=== PATIENT | male | born 1930 | race Caucasian/White ===

== ENCOUNTER 2016-05-12 04:49 | Observation (INO) | payer BC, OTHER ==
[2016-05-12] VITALS (8 sets, daily range): BP systolic 129–181; BP diastolic 49–71; PULSE 69–84; TEMP 36.6–37.2; O2SAT 93–97; Ht 170.2 cm; Wt 98.2 kg
[~2016-05-12] VITALS: Ht 170.2 cm; Wt 98.2 kg
[~2016-05-12 04:49] MED LIST: ACT/45 PO; AMB10 PO; ARIP2TAB3 PO; ASPI81TA28 PO; ATEN50TA8 PO; CHOL20009 PO; DULO60CA44 PO; FINA1TAB36 PO; FLM4 PO; GUAI1TAB69 PO; IPRA0.037 NAE; LISI-729 PO; MULT-506 PO; OMEG10007 PO; POTA20TA16 PO; [UNRECOGNIZED DRUG - CODE] PO; [UNRECOGNIZED DRUG - OTHER] PO
[2016-05-12] MEDS ORDERED: SODIUM CHLORIDE 0.9% 500ML 500 ML IV STA (05:07)
--- NOTE | 2016-05-12 05:10 | EMERGENCY ROOM VISIT NOTE ---
History Report prepared by Kolby: Mary Ann Gavin Under the Supervision of: Dr. Ivan Brooks M.D. First contact with patient: 05:01 Chief Complaint: THROAT PAIN/INJURY Stated Complaint: THROAT PAIN/DIFFICULTY SWALLOWING History of Present Illness The patient is a 85 year old male who presents to the Emergency Room with complaints of a constant illness beginning yesterday. The patient states that he is not having difficulty swallowing and his throat does not hurt. Per the nursing staff the patient ate an apple on the way into the ED. He complains of lightheaded, cough, runny nose, runny eyes, trouble speaking which he notes is normal. He denies any vomiting, nausea, and shortness of breath. Source of History: patient Onset: yesterday Position: other (global) Timing: constant Associated Symptoms: + cough, No SOB, No nausea, No sorethroat, No vomiting Note: He complains of lightheaded, runny nose, runny eyes. Review of Systems See HPI for pertinent positives & negatives. A total of 10 systems reviewed and were otherwise negative. Past Medical & Surgical Medical Problems: (1) Diabetes mellitus (2) Diverticulosis Colon (W/O Ment Of Hemorrhage) (3) History of depression (4) Hypertension Nos Family History Hypertension Lung disease Social History Smoking Status: Former Smoker Alcohol Use: none Drug Use: none Marital Status: Housing Status: lives with significant other Occupation Status: retired Current/Historical Medications Scheduled Aripiprazole (Abilify), 2 MG PO DAILY Aspirin (Aspirin Ec), 81 MG PO HS Atenolol (Tenormin), 50 MG PO QPM Cholecalciferol (Vitamin D), 2,000 INTER.UNIT PO QAM Colestipol HCl (Micronized Colestipol HCl), 4 GM PO QD@1200 Duloxetine Hcl (Cymbalta), 60 MG PO QAM Finasteride (Alopecia) (Finasteride), 5 MG PO HS Fish Oil ([place]-3), 1,200 MG PO BID Guaifenesin (Mucinex Maximum Strength), 1 TAB PO DIRECTED Ipratropium [place] (Nasal) (Ipratropium [place]), 1-2 SPRAYS PURA DAILY Lisinopril (Zestril), 7.5 MG PO QPM Multivitamin (Multivitamin), 1 TAB PO QAM Pioglitazone (Actos), 30 MG PO DAILY Potassium Ext Rel (Klor-Con), 20 MEQ PO QAM Tamsulosin HCl (Tamsulosin HCl), 0.4 MG PO HS Scheduled PRN Zolpidem Tartrate (Zolpidem Tartrate), 5 MG PO HS PRN for Sleep Allergies Coded Allergies: Statins (Verified Adverse Reaction, Intermediate, MUSCLE PAIN, 05/12/16) Physical Exam Vital Signs Date Time Temp Pulse Resp B/P Pulse Ox O2 Delivery O2 Flow Rate FiO2 05/12/16 06:45 70 05/12/16 06:40 75 20 154/62 93 Room Air 05/12/16 04:50 37.1 88 20 154/62 96 Room Air 05/12/16 04:50 98 Room Air Physical Exam GENERAL: Patient is well appearing and in no acute distress. HEENT: No acute trauma, normocephalic atraumatic, mucous membranes moist, no scleral icterus. Bilateral nasal rhinorrhea, watery conjunctivitis bilateral eyes. NECK: No stridor, no adenopathy, no meningismus, trachea is midline. LUNGS: No dyspnea. Clear to auscultation and equal bilaterally. No wheeze, no rhonchi. Periodic mild cough. HEART: Regular rate and rhythm. No murmurs, rubs, gallops appreciated. ABDOMEN: Soft, nontender, bowel sounds positive, no masses appreciated, no peritonitis. BACK: No midline tenderness, no CVA tenderness EXTREMITIES: Normal motion all extremities, no cyanosis, no edema. NEUROLOGIC: Alert and oriented, no acute motor or sensory deficits, no focal weakness, cranial nerves grossly intact. SKIN: No rash, no jaundice, no diaphoresis. Medical Decision & Procedures ER Provider Diagnostic Interpretation: X ray results are stated below per my interpretation and the radiologist's interpretation. CHEST ONE VIEW PORTABLE FINDINGS: The bones soft tissues and hemidiaphragms are normal. The cardiomediastinal silhouette is normal. The lungs are clear. The pulmonary vasculature is normal. IMPRESSION: Negative chest. Electronically signed by: Gio Simmons M.D. 05/12/2016 6:47 AM Dictated Date/Time: 05/12/2016 6:47 AM Laboratory Results 05/12/16 05:25 Red Blood Count 3.74, Mean Corpuscular Volume 91.7, Mean Corpuscular Hemoglobin 30.5, Mean Corpuscular Hemoglobin Concent 33.2, Mean Platelet Volume 10.7, Neutrophils (%) (Auto) 65.5, Lymphocytes (%) (Auto) 18.2, Monocytes (%) (Auto) 14.4, Eosinophils (%) (Auto) 1.5, Basophils (%) (Auto) 0.2, Neutrophils # (Auto ) 3.97, Lymphocytes # (Auto) 1.10, Monocytes # (Auto) 0.87, Eosinophils # (Auto ) 0.09, Basophils # (Auto) 0.01 05/12/16 05:25 Test 05/12/16 05:25 05/12/16 05:45 White Blood Count 6.05 K/uL (4.8-10.8) Red Blood Count 3.74 M/uL (4.7-6.1) Hemoglobin 11.4 g/dL (14.0-18.0) Hematocrit 34.3 % (42-52) Mean Corpuscular Volume 91.7 fL (80-100) Mean Corpuscular Hemoglobin 30.5 pg (25-34) Mean Corpuscular Hemoglobin Concent 33.2 g/dl (32-36) Platelet Count 164 K/uL (130-400) Mean Platelet Volume 10.7 fL (7.4-10.4) Neutrophils (%) (Auto) 65.5 % Lymphocytes (%) (Auto) 18.2 % Monocytes (%) (Auto) 14.4 % Eosinophils (%) (Auto) 1.5 % Basophils (%) (Auto) 0.2 % Neutrophils # (Auto) 3.97 K/uL (1.4-6.5) Lymphocytes # (Auto) 1.10 K/uL (1.2-3.4) Monocytes # (Auto) 0.87 K/uL (0.11-0.59) Eosinophils # (Auto) 0.09 K/uL (0-0.5) Basophils # (Auto) 0.01 K/uL (0-0.2) RDW Standard Deviation 47.2 fL (36.4-46.3) RDW Coefficient of Variation 14.2 % (11.5-14.5) Immature Granulocyte % (Auto) 0.2 % Immature Granulocyte # (Auto) 0.01 K/uL (0.00-0.02) Anion Gap 10.0 mmol/L (3-11) Est Creatinine Clear Calc Drug Dose 61.1 ml/min Estimated GFR () 79.2 Estimated GFR (Non- 68.3 BUN/Creatinine Ratio 16.1 (10-20) Calcium Level 8.0 mg/dl (8.5-10.1) Magnesium Level 1.6 mg/dl (1.8-2.4) Total Creatine Kinase 212 U/L (39-308) Troponin I 0.026 ng/ml (0-0.045) Influenza Type A Antigen Neg for Influ A (NEG) Influenza Type B Antigen Neg for Influ B (NEG) Laboratory results as reviewed by me. Medications Administered Medications (Trade) Dose Ordered Sig/Brittaney Route Start Time Stop Time Status Last Admin Dose Admin Sodium Chloride (Nss 500ml) 500 ml @ 999 mls/hr Q31M STAT IV 05/12/16 05:07 05/12/16 05:37 DC 05/12/16 05:27 999 MLS/HR Magnesium Sulfate (Magnesium Sulfate) 2 gm NOW STAT IV 05/12/16 06:18 05/12/16 06:19 DC 05/12/16 06:39 2 GM ED Course 0501: The patient was evaluated in room B9. A complete history and physical exam was performed. 0507: Sodium Chloride 500 ml @ 999 mls/hr IV. 0515: I reevaluated the patient. He states that the guttural noise started 24 hours ago when he started feeling ill. 0618: Magnesium Sulfate 2gm IV. 0619: I reevaluated the patient. He states that he is too weak to go home. 0700: Discussed the patient's case with Dr. Tejada of [facility]. The patient will be evaluated for further treatment and disposition. 0705: Upon reevaluation, the patient is hemodynamically stable. Discussed results and treatment plan with the patient. He verbalized understanding and agreement with the treatment plan. The patient will be evaluated for further management. Medical Decision Differential: Sepsis, Infectious (UTI/Pneumonia/Meningitis/etc), Metabolic/ Electrolyte Abnormality, Cardiac, Hepatic, Endocrine, Toxicologic, Neurologic, amongst other pathologies entertained. 85 yr old male with 3 yrs of speach issues after some spontaneous event of uncertain etiology. Increased weakness and fatigue over last 24 hours associated with URI and episodes of moaning. He states he can't control moaning but he is in no distress from them. He adamantly denies throat issues for me and he ate an apple on the way in to ER. No fevers, cxr looks chronic. Mag is low thus this was started repletion here. Given weakness will bring in to medical team for further evaluation and treatment. Consults Time Called: 0650 Consulting Physician: Dr. Tejada Returned Call: 0700 Discussed the patient's case with Dr. Tejada of [facility]. The patient will be evaluated for further treatment and disposition. Impression Primary Impression: Hypomagnesemia Additional Impressions: Generalized weakness URI (upper respiratory infection) Difficulty with speech Scribe Attestation The scribe's documentation has been prepared under my direction and personally reviewed by me in its entirety. I confirm that the note above accurately reflects all work, treatment, procedures, and medical decision making performed by me. Departure Information Dispostion Being Evaluated By Hospitalist Referrals Nate Penny M.D. (PCP) Patient Instructions My [facility] Health Problem Qualifiers Additional Impressions: URI (upper respiratory infection) URI type: unspecified URI Qualified Codes: J06.9 - Acute upper respiratory infection, unspecified
[2016-05-12 06:05] LABS: BASO % 0.2 %; BASO ABS # 0.01 K/uL (0-0.2); COMPLETE YES; EOS % 1.5 %; HEMATOCRIT 34.3 % (42-52); IG% 0.2 %; LYMPH % 18.2 %; MEAN CELL VOLUME 91.7 fL (80-100); MEAN CORPUSCULAR HEMOGLOBIN 30.5 pg (25-34); MEAN CORPUSCULAR HGB CONC 33.2 g/dl (32-36); MEAN PLATELET VOLUME 10.7 fL (7.4-10.4); MONO % 14.4 %; NEUT % 65.5 %; PLATELET COUNT 164 K/uL (130-400); RED BLOOD COUNT 3.74 M/uL (4.7-6.1); WHITE BLOOD COUNT 6.05 K/uL (4.8-10.8)
[2016-05-12 06:07] LABS: BUN/CREATININE RATIO 16.1 (10-20); MAGNESIUM 1.6 mg/dl (1.8-2.4); POTASSIUM 3.7 mmol/L (3.5-5.1)
[2016-05-12] MEDS ORDERED: ACT30 PO (06:16)
[2016-05-12] MEDS ORDERED: IPRA0.06 NAE (06:18)
[2016-05-12] MEDS ORDERED: MAGNESIUM SULFATE 1GM / D5W 1 GM BAG IV STA (06:18)
--- NOTE | 2016-05-12 06:48 | DIAGNOSTIC IMAGING REPORT ---
CHEST ONE VIEW PORTABLE CLINICAL HISTORY: coughs dyspnea COMPARISON STUDY: 11/05/2015 FINDINGS: The bones soft tissues and hemidiaphragms are normal. The cardiomediastinal silhouette is normal. The lungs are clear. The pulmonary vasculature is normal. IMPRESSION: Negative chest. Electronically signed by: Gio Simmons M.D. 05/12/2016 6:47 AM Dictated Date/Time: 05/12/2016 6:47 AM
[2016-05-12] MEDS ORDERED: DC ALL PREVIOUSLY ORDERED DIABETES MEDS ONE (08:45)
[2016-05-12] MEDS ORDERED: GLUCOSE 40% GEL 15 GM TUBE PO PRN (08:45)
[2016-05-12] MEDS ORDERED: GLUCAGON FOR INJ 1 MG VIAL SQ PRN (08:45)
[2016-05-12] MEDS ORDERED: ONDANSETRON INJ 2 MG/ML 2 ML VIAL IV PRN (08:45)
[2016-05-12] MEDS ORDERED: POLYETHYLENE (MIRALAX) 17 GM PACK PO PRN (08:45)
[2016-05-12] MEDS ORDERED: GLUCOSE 10 TABS/TUBE PO PRN (08:45)
[2016-05-12] MEDS ORDERED: DEXTROSE 50% 50 ML SYR IV PRN (08:45)
[2016-05-12] MEDS ORDERED: ACETAMINOPHEN 325 MG TAB PO PRN (08:45)
[2016-05-12] MEDS ORDERED: FINA5TAB4 PO (08:51)
[2016-05-12] MEDS ORDERED: SOLI5TAB2 PO (08:53)
[2016-05-12] MEDS ORDERED: PHARMACY GLYCEMIC MGMT CONSULT PRN (09:32)
--- NOTE | 2016-05-12 09:34 | History and Physical ---
History & Physical Date & Time of Service: May 12, 2016 at 08:40 Chief Complaint: cough and lightheadedness Primary Care Physician: Casey Zhang D.OJordana History of Present Illness Source: patient, clinic records This is an 85 year old male with PMH of DM type 2, HTN, dyslipidemia, depression , BPH, who presents to the ED with cough and lightheadedness. Patient states symptoms started yesterday with dry cough, rhinorrhea, lightheadedness especially with cough and upon standing, generalized weakness, and fatigue. He reports chronic dysarthria with unknown etiology for which he follows with a neurologist. Denies fever, chills, myalgias, headache, vision change, swallowing difficulty, focal weakness or numbness, chest pain, SOB, abdominal pain, N/V/D, appetite loss, dysuria, frequency. Denies recent sick contact, hospitalization, or antibiotics. Denies history of lung or cardiac disease. Pt lives with and ambulates unassisted. 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 Surgical Problems: (1) H/O sinus surgery Status: Chronic (2) History of dental surgery Status: Chronic Family History FH: congestive heart failure BROTHER FH: lung cancer BROTHER Hypertension Lung disease Social History Smoking Status: Former Smoker (quit 30 year sago, prior 1.5 ppd x 35 years) Alcohol Use: occasionally (1 glass of wine on occasion) Drug Use: none Marital Status: Housing status: lives with family Occupational Status: retired Multi-Drug Resistant Organisms History of MDRO: No Allergies Coded Allergies: Statins (Verified Adverse Reaction, Intermediate, MUSCLE PAIN, 05/12/16) Home Medications Scheduled Aripiprazole (Abilify), 1 MG PO DAILY Aspirin (Aspirin Ec), 81 MG PO HS Cholecalciferol (Vitamin D), 2,000 INTER.UNIT PO QAM Colestipol HCl (Micronized Colestipol HCl), 4 GM PO QD@1200 Duloxetine Hcl (Cymbalta), 60 MG PO QAM Finasteride (Proscar), 1 TAB PO HS Fish Oil ([place]-3), 1,200 MG PO BID Ipratropium [place] (Nasal) (Ipratropium [place]), 1-2 SPRAYS PURA DAILY Lisinopril (Zestril), 5 MG PO QPM Multivitamin (Multivitamin), 1 TAB PO QAM Pioglitazone (Actos), 30 MG PO DAILY Potassium Ext Rel (Klor-Con), 20 MEQ PO QAM Solifenacin Succinate (Vesicare), 1 TAB PO DAILY Tamsulosin HCl (Tamsulosin HCl), 0.4 MG PO HS Scheduled PRN Zolpidem Tartrate (Zolpidem Tartrate), 5 MG PO HS PRN for Sleep Review of Systems Constitutional: + fatigue, + weakness (generalized), No chills, No fever, No weight loss Eyes: No worsening of vision ENT: + nasal symptoms (rhinorrhea), No sore throat, No trouble swallowing Respiratory: + cough, No shortness of breath, No sputum Cardiovascular: No chest pain, No edema Abdomen: No diarrhea, No nausea, No pain, No vomiting Musculoskeletal: No calf pain, No muscle pain Genitourinary - Male: No dysuria, No urinary frequency Neurologic: + problem reported (lightheadedness especially with standing and cough. no headache. ), No numbness/tingling, No weakness Psychiatric: No depression symptoms Endocrine: + problem reported (blood sugars controlled at home ) Integumentary: No rash Physical Exam Vital Signs Date Time Temp Pulse Resp B/P Pulse Ox O2 Delivery O2 Flow Rate FiO2 05/12/16 08:20 74 19 153/58 94 Room Air 05/12/16 07:39 37.1 84 16 129/49 95 Room Air 05/12/16 06:45 70 05/12/16 06:40 75 20 154/62 93 Room Air 05/12/16 04:50 37.1 88 20 154/62 96 Room Air 05/12/16 04:50 98 Room Air General Appearance: WD/WN, no apparent distress, + pertinent finding (pleasant alert elderly male, lying in bed, no distress) Head: normocephalic, atraumatic Eyes: normal inspection, PERRL, EOMI, sclerae normal ENT: normal ENT inspection, hearing grossly normal, TMs normal, pharynx normal Neck: supple, trachea midline Respiratory/Chest: no respiratory distress, no accessory muscle use, + pertinent finding (trace wheeze on the left base, coughing often during exam) Cardiovascular: regular rate, rhythm, no murmur Abdomen/GI: normal bowel sounds, non tender, soft Extremities/Musculoskelatal: normal inspection, no calf tenderness, no pedal edema 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 motor 4/5 in all extremities, sensation to light touch grossly intact all extremities. ) Skin: normal color, warm/dry, + pertinent finding (skin appears dry) Diagnostics Laboratory Results Results Past 24 Hours Test 05/12/16 05:25 05/12/16 05:45 Range/Units White Blood Count 6.05 4.8-10.8 K/uL Red Blood Count 3.74 4.7-6.1 M/uL Hemoglobin 11.4 14.0-18.0 g/dL Hematocrit 34.3 42-52 % Mean Corpuscular Volume 91.7 80-100 fL Mean Corpuscular Hemoglobin 30.5 25-34 pg Mean Corpuscular Hemoglobin Concent 33.2 32-36 g/dl Platelet Count 164 130-400 K/uL Mean Platelet Volume 10.7 7.4-10.4 fL Neutrophils (%) (Auto) 65.5 % Lymphocytes (%) (Auto) 18.2 % Monocytes (%) (Auto) 14.4 % Eosinophils (%) (Auto) 1.5 % Basophils (%) (Auto) 0.2 % Neutrophils # (Auto) 3.97 1.4-6.5 K/uL Lymphocytes # (Auto) 1.10 1.2-3.4 K/uL Monocytes # (Auto) 0.87 0.11-0.59 K/uL Eosinophils # (Auto) 0.09 0-0.5 K/uL Basophils # (Auto) 0.01 0-0.2 K/uL RDW Standard Deviation 47.2 36.4-46.3 fL RDW Coefficient of Variation 14.2 11.5-14.5 % Immature Granulocyte % (Auto) 0.2 % Immature Granulocyte # (Auto) 0.01 0.00-0.02 K/uL Sodium Level 139 136-145 mmol/L Potassium Level 3.7 3.5-5.1 mmol/L Chloride Level 103 98-107 mmol/L Carbon Dioxide Level 26 21-32 mmol/L Anion Gap 10.0 3-11 mmol/L Blood Urea Nitrogen 16 7-18 mg/dl Creatinine 1.00 0.60-1.40 mg/dl Est Creatinine Clear Calc Drug Dose 61.1 ml/min Estimated GFR () 79.2 Estimated GFR (Non- 68.3 BUN/Creatinine Ratio 16.1 10-20 Random Glucose 131 70-99 mg/dl Calcium Level 8.0 8.5-10.1 mg/dl Magnesium Level 1.6 1.8-2.4 mg/dl Total Creatine Kinase 212 39-308 U/L Troponin I 0.026 0-0.045 ng/ml Influenza Type A Antigen Neg for Influ A NEG Influenza Type B Antigen Neg for Influ B NEG Diagnostic Radiology CHEST ONE VIEW PORTABLE CLINICAL HISTORY: coughs dyspnea COMPARISON STUDY: 11/05/2015 FINDINGS: The bones soft tissues and hemidiaphragms are normal. The cardiomediastinal silhouette is normal. The lungs are clear. The pulmonary vasculature is normal. IMPRESSION: Negative chest. EKG NSR, 66 bpm, nonspecific T wave abnormality in III, nonspecific ST abnormality in V1 Impression Assessment and Plan GENERALIZED WEAKNESS Possibly due to viral upper vs. lower respiratory infection Afebrile, no leukocytosis, HD stable + orthostasis (HR increased >10 bpm with standing) EKG- NSR 66 bpm, nonspecific ST and T abnormalities CXR- no infiltrate Influenza antigen neg- check influenza PCR Check UA Supportive care with IVF's, nebs PRN PT and OT evaluations LIGHTHEADEDNESS Positive orthostasis (HR increased >10 bpm with standing) Likely hypovolemic due to viral URI Received 500 mL of NSS in ER Will give another 500 mL at 125 mL/hour Recheck orthostatic VS Q shift HYPOMAGNESEMIA May also be contributing to generalized weakness Received 2 gm IV mag in ER Monitor HYPERTENSION BP running 120s-150s Continue lisinopril DM TYPE 2 Hold Actos Last A1c 02/04/16 was 6.0 Insulin sliding scale coverage Recheck A1c DYSLIPIDEMIA Statin intolerance per records BPH Continue Flomax, Proscar, Vesicare DEPRESSION Continue Cymbalta and Abilify DVT PROPHYLAXIS Lovenox SQ CODE STATUS DNR per my discussion with the patient DISPOSITION Observation to telemetry Follows with Dr. Casey Zhang for primary care Patient seen in collaboration with Dr. Diggs. Please see her addendum. ATTENDING ADDENDUM Record reviewed. Patient interviewed and examined. Care coordinated with Rebekah Khanna PA-C. Please refer to her documentation for patient's history. I have seen and examined this patient and discussed the plan with Vida Khanna. I agree with the above assessment and plan. Gemma Diggs DO [facility] Advanced Directives Existing Advance Directive: Yes Existing Living Will: Yes Existing Power of Ad Terminal Makeup Operator: No
[2016-05-12] MEDS ORDERED: ALBUT/IPRATROP 3MG/0.5MG NEB 3 ML VIAL INH PRN (09:45)
[2016-05-12] MEDS ORDERED: PNEUMOCOCCAL POLYSACCHARIDES 25 MCG/0.5 ML VIAL/SYR IM. ONE (10:30)
[2016-05-12] MEDS ORDERED: PNEUMOCOCCAL ADMINISTRATION CHARGE ONE (10:30)
[2016-05-12] MEDS ORDERED: SODIUM CHLORIDE 0.9% 500ML 500 ML IV SCH (10:30)
[2016-05-12 11:28] LABS: HEMATOCRIT 34.5 % (42-52); MEAN CELL VOLUME 92.7 fL (80-100); MEAN CORPUSCULAR HEMOGLOBIN 30.6 pg (25-34); MEAN PLATELET VOLUME 10.7 fL (7.4-10.4); PLATELET COUNT 156 K/uL (130-400); RED BLOOD COUNT 3.72 M/uL (4.7-6.1); WHITE BLOOD COUNT 6.15 K/uL (4.8-10.8)
[2016-05-12 11:46] LABS: INR 1.1 (0.9-1.1); PROTHROMBIN TIME (PATIENT) 11.3 SECONDS (9.0-12.0)
[2016-05-12] MEDS: ARIPIprazole 1 MG/ML ORAL SOLN 150 ML BTL PO SCH (11:59)
[2016-05-12] MEDS: INSULIN ASPART 100 UNITS/ML 3 ML PEN SC SCH ×3 (11:59→21:00)
[2016-05-12] MEDS ORDERED: IV FLUIDS COMPLETED PRN (12:00)
[2016-05-12] MEDS: COLESTIPOL HCL 1 GM TAB PO SCH (12:00)
[2016-05-12] MEDS ORDERED: HydrALAZINE HCL 20 MG/ML VIAL IV. PRN (19:45)
[2016-05-12] MEDS ORDERED: LISINOPRIL 5 MG TAB PO ONE (19:45)
[2016-05-12] MEDS: FINASTERIDE 5 MG TAB PO SCH (20:54)
[2016-05-12] MEDS: OMEGA-3 (PURIFIED FISH OIL) 1 GM CAP PO SCH (20:54)
[2016-05-12] MEDS: LISINOPRIL 5 MG TAB PO SCH (20:55)
[2016-05-12] MEDS: ASPIRIN 81 MG ECTAB PO SCH (20:55)
[2016-05-12] MEDS: TAMSULOSIN HCL 0.4 MG CAP PO SCH (20:55)
[2016-05-12] MEDS: ENOXAPARIN 40 MG/0.4 ML SYR SC SCH (20:56)
[2016-05-12] MEDS ORDERED: ZOLPIDEM TARTRATE 10 MG TAB PO PRN (21:00)
[2016-05-12 21:08] LABS: URINE APPEARANCE CLEAR (CLEAR); URINE BILIRUBIN NEG (NEG); URINE COLOR YELLOW; URINE EPITHELIAL CELL AUTO 0-5 /lpf (0-5); URINE NITRITE NEG (NEG); URINE SPECIFIC GRAVITY 1.003 (1.000-1.030); UROBILINOGEN NEG (NEG)
[2016-05-12 21:09] LABS: MANUAL MICROSCOPIC REQUIRED? NO; REVIEW REQ? NO
[2016-05-12 21:36] LABS: INFLUENZA B PCR Neg for Influ B (NEG)
[2016-05-12 21:37] LABS: INFLUENZA A PCR POS for Influ A (NEG)
[2016-05-12] MEDS: INSULIN GLARGINE SOLOSTAR 100 UNITS/ML 3 ML PEN SC SCH (21:48)
[2016-05-13] VITALS (15 sets, daily range): BP systolic 119–189; BP diastolic 62–76; PULSE 72–83; TEMP 36.6–37.5; O2SAT 92–97
[2016-05-13 06:49] LABS: CREATININE 0.9 mg/dl (0.60-1.40); MAGNESIUM 1.8 mg/dl (1.8-2.4); POTASSIUM 3.4 mmol/L (3.5-5.1)
[2016-05-13 07:17] LABS: ESTIMATED AVERAGE GLUCOSE 131 mg/dl; HA1C FLAG Normal (Normal)
[2016-05-13] MEDS: OMEGA-3 (PURIFIED FISH OIL) 1 GM CAP PO SCH ×2 (07:41→20:52)
[2016-05-13] MEDS: CHOLECALCIFEROL 1000 INTER.UNIT TAB PO SCH (07:41)
[2016-05-13] MEDS: POTASSIUM CHLORIDE 20 MEQ TABCR PO SCH (07:42)
[2016-05-13] MEDS: DULOXETINE HCL 60 MG CAP PO SCH (07:42)
[2016-05-13] MEDS: MULTIVITAMIN TAB PO SCH (07:43)
[2016-05-13] MEDS: ARIPIprazole 1 MG/ML ORAL SOLN 150 ML BTL PO SCH (07:44)
[2016-05-13] MEDS: INSULIN ASPART 100 UNITS/ML 3 ML PEN SC SCH ×4 (08:00→21:30)
[2016-05-13] MEDS ORDERED: OSELTAMIVIR PHOSPHATE 75 MG CAP PO ONE (10:30)
[2016-05-13] MEDS: COLESTIPOL HCL 1 GM TAB PO SCH (12:23)
--- NOTE | 2016-05-13 17:22 | Progress Note ---
Medicine Progress Note Date & Time of Visit: May 13, 2016 at 17:09. Subjective Pt was seen and examined Pt sitting at the edge of the bed eating his breakfast Pt said that he feels much better today compared to yesterday he said that his breathing feels good he denies any chest pain, palpitation, dizziness Objective Last 8 Hrs Date Time Temp Pulse Resp B/P Pulse Ox O2 Delivery O2 Flow Rate FiO2 05/13/16 15:28 36.8 82 18 149/76 97 05/13/16 15:03 94 Room Air 05/13/16 12:00 93 Room Air 05/13/16 11:38 36.8 72 18 119/63 95 Physical Exam: General- No acute distress Head- atraumatic Eyes- PERRL, EOMI ENT- oropharynx clear Neck- supple, no JVD Lungs- clear to auscultation and percussion Heart- regular rhythm; no murmur Abdomen- normal bowel sounds, soft Extremities- no calf tenderness Neuro- alert, oriented x 3; PERRL, EOMI Skin- warm & dry Laboratory Results: Last 24 Hours Test 05/12/16 19:57 05/12/16 20:29 05/12/16 20:44 05/13/16 05:45 Influenza Type A (RT-PCR) POS for Influ A Influenza Type B (RT-PCR) Neg for Influ B Bedside Glucose 109 mg/dl Urine Color YELLOW Urine Appearance CLEAR Urine pH 5.0 Urine Specific [place] 1.003 Urine Protein NEG Urine Glucose (UA) NEG Urine Ketones NEG Urine Occult Blood TRACE Urine Nitrite NEG Urine Bilirubin NEG Urine Urobilinogen NEG Urine Leukocyte Esterase NEG Urine WBC (Auto) 0 /hpf Urine RBC (Auto) 0-4 /hpf Urine Hyaline Casts (Auto) 0 /lpf Urine Epithelial Cells (Auto) 0-5 /lpf Urine Bacteria (Auto) NEG Sodium Level 138 mmol/L Potassium Level 3.4 mmol/L Chloride Level 103 mmol/L Carbon Dioxide Level 26 mmol/L Anion Gap 9.0 mmol/L Blood Urea Nitrogen 14 mg/dl Creatinine 0.90 mg/dl Est Creatinine Clear Calc Drug Dose 67.6 ml/min Estimated GFR () 89.9 Estimated GFR (Non- 77.6 BUN/Creatinine Ratio 16.0 Random Glucose 96 mg/dl Estimated Average Glucose 131 mg/dl Hemoglobin A1c 6.2 % Calcium Level 8.0 mg/dl Magnesium Level 1.8 mg/dl Test 05/13/16 06:31 05/13/16 11:00 05/13/16 16:04 Bedside Glucose 92 mg/dl 88 mg/dl 107 mg/dl Date/Time Source Procedure Growth Status 05/12/16 20:44 Urine , Clean Catch Urine Culture - Preliminary NO GROWTH - LESS THAN 1,000 COLONIES/... Resulted Assessment & Plan GENERALIZED WEAKNESS Possible related to FLU Afebrile, no leukocytosis, HD stable CXR- no infiltrate UA and Ucx negative Continue PT and OT INFLUENZA A Staring on Tamiflu to complete 5 days course LIGHTHEADEDNESS Resolved Electrolytes Imbalance K replaced Mg stable Continue monitor HYPERTENSION Continue lisinopril Continue monitor BP DM TYPE 2 Hold Actos HBA1c 6.2 on 05/13/16 Insulin sliding scale coverage DYSLIPIDEMIA Statin intolerance per records BPH Continue Flomax, Proscar, Vesicare DEPRESSION Continue Cymbalta and Abilify DVT PROPHYLAXIS Lovenox SQ CODE STATUS DNR per my discussion with the patient DISPOSITION Observation to telemetry Follows with Dr. Casey Zhang for primary care Current Inpatient Medications: Current Inpatient Medications Medications (Trade) Dose Ordered Sig/Brittaney Route Start Time Stop Time Status Last Admin Dose Admin Enoxaparin Sodium (Lovenox Inj) 40 mg QPM SC 05/12/16 21:00 06/11/16 20:59 05/12/16 20:56 40 MG Acetaminophen (Tylenol Tab) 650 mg Q4H PRN PO 05/12/16 08:45 06/11/16 08:44 05/13/16 03:35 650 MG Ondansetron HCl (Zofran Inj) 4 mg Q6H PRN IV 05/12/16 08:45 06/11/16 08:44 Polyethylene (Miralax Powder Packet) 17 gm DAILY PRN PO 05/12/16 08:45 06/11/16 08:44 Insulin Glargine (Lantus Solostar Pen) 10 unit HS SC 05/12/16 21:00 06/11/16 20:59 05/12/16 21:48 10 UNIT Insulin Aspart (novoLOG ASPART) SLIDING SCALE If C... ACHS SC 05/12/16 11:00 06/11/16 10:59 05/13/16 08:00 3 UNITS Glucose (Glucose 40% Gel) 15-30 GRAMS 15 GRAMS... UD PRN PO 05/12/16 08:45 06/11/16 08:44 Glucose (Glucose Chew Tab) 4-8 Tablets 4 Tabl... UD PRN PO 05/12/16 08:45 06/11/16 08:44 Dextrose (Dextrose 50% 50ML Syringe) 25-50ML OF 50% DW IV FOR... UD PRN IV 05/12/16 08:45 06/11/16 08:44 Glucagon (Glucagon Inj) 1 mg UD PRN SQ 05/12/16 08:45 06/11/16 08:44 Aspirin (Ecotrin Tab) 81 mg HS PO 05/12/16 21:00 06/11/16 20:59 05/12/16 20:55 81 MG Colestipol HCl (Colestid Tab) 4 gm QD@1200 PO 05/12/16 12:00 06/11/16 11:59 05/13/16 12:23 4 GM Duloxetine HCl (Cymbalta Cap) 60 mg QAM PO 05/13/16 09:00 06/12/16 08:59 05/13/16 07:42 60 MG Finasteride (Proscar Tab) 5 mg HS PO 05/12/16 21:00 06/11/16 20:59 05/12/16 20:54 5 MG Fish Oil ([place]-3 (Purified Fish Oil) Cap) 1 gm BID PO 05/12/16 21:00 06/11/16 20:59 05/13/16 07:41 1 GM Lisinopril (Zestril Tab) 5 mg QPM PO 05/12/16 21:00 06/11/16 20:59 05/12/16 20:55 5 MG Multivitamins (Multivitamin Tab) 1 tab QAM PO 05/13/16 09:00 06/12/16 08:59 05/13/16 07:43 1 TAB Potassium Chloride (Klor-Con Tab) 20 meq QAM PO 05/13/16 09:00 06/12/16 08:59 05/13/16 07:42 20 MEQ Tamsulosin HCl (Flomax Cap) 0.4 mg HS PO 05/12/16 21:00 06/11/16 20:59 05/12/16 20:55 0.4 MG Zolpidem Tartrate (Ambien Tab) 5 mg HS PRN PO 05/12/16 21:00 06/11/16 20:59 Aripiprazole (Abilify Soln) 1 mg DAILY PO 05/12/16 11:15 06/11/16 11:14 05/13/16 07:44 1 MG Cholecalciferol (Vitamin D Tab) 2,000 inter.unit QAM PO 05/13/16 09:00 06/12/16 08:59 05/13/16 07:41 2,000 INTER.UNIT Miscellaneous Information (Order Awaiting Action) 1 ea QS N/A 05/12/16 16:00 06/11/16 15:59 Albuterol/ Ipratropium (Duoneb) 3 ml Q4R PRN INH 05/12/16 09:45 06/11/16 09:44 Miscellaneous (Iv Fluids Completed) 1 ea PRN PRN N/A 05/12/16 12:00 05/12/17 11:59 Hydralazine HCl (HydrALAZINE INJ) 10 mg Q6H PRN IV. 05/12/16 19:45 06/11/16 19:44 Oseltamivir Phosphate (Tamiflu Cap) 75 mg BID PO 05/13/16 21:00 05/18/16 20:59
[2016-05-13] MEDS: TAMSULOSIN HCL 0.4 MG CAP PO SCH (20:51)
[2016-05-13] MEDS: ASPIRIN 81 MG ECTAB PO SCH (20:53)
[2016-05-13] MEDS: FINASTERIDE 5 MG TAB PO SCH (20:54)
[2016-05-13] MEDS: LISINOPRIL 5 MG TAB PO SCH (20:54)
[2016-05-13] MEDS: OSELTAMIVIR PHOSPHATE 75 MG CAP PO SCH (20:55)
[2016-05-13] MEDS: ENOXAPARIN 40 MG/0.4 ML SYR SC SCH (20:57)
[2016-05-13] MEDS: INSULIN GLARGINE SOLOSTAR 100 UNITS/ML 3 ML PEN SC SCH (21:31)
[2016-05-14] VITALS (13 sets, daily range): BP systolic 146–170; BP diastolic 0–84; PULSE 73–81; TEMP 36.7–37.3; O2SAT 92–97
[2016-05-14 06:32] LABS: BUN/CREATININE RATIO 17.9 (10-20); CREATININE 0.81 mg/dl (0.60-1.40); MAGNESIUM 1.8 mg/dl (1.8-2.4); POTASSIUM 3.5 mmol/L (3.5-5.1)
[2016-05-14] MEDS: INSULIN ASPART 100 UNITS/ML 3 ML PEN SC SCH ×4 (07:59→21:00)
[2016-05-14] MEDS: POTASSIUM CHLORIDE 20 MEQ TABCR PO SCH (08:00)
[2016-05-14] MEDS: ARIPIprazole 1 MG/ML ORAL SOLN 150 ML BTL PO SCH (08:00)
[2016-05-14] MEDS: DULOXETINE HCL 60 MG CAP PO SCH (08:00)
[2016-05-14] MEDS: MULTIVITAMIN TAB PO SCH (08:01)
[2016-05-14] MEDS: OSELTAMIVIR PHOSPHATE 75 MG CAP PO SCH ×2 (08:01→21:36)
[2016-05-14] MEDS: OMEGA-3 (PURIFIED FISH OIL) 1 GM CAP PO SCH ×2 (08:01→21:36)
[2016-05-14] MEDS: CHOLECALCIFEROL 1000 INTER.UNIT TAB PO SCH (08:03)
[2016-05-14] MEDS ORDERED: GUAIFENESIN 200 MG TAB PO ONE (10:30)
[2016-05-14] MEDS: COLESTIPOL HCL 1 GM TAB PO SCH (11:47)
--- NOTE | 2016-05-14 13:12 | Progress Note ---
Medicine Progress Note Date & Time of Visit: May 14, 2016 at 13:05. Subjective Pt was seen and examined Pt lying in bed with no acute distress Pt said that he continue to cough he said that his breathing feels much better he denies any chest pain, palpitation, dizziness and sob Objective Last 8 Hrs Date Time Temp Pulse Resp B/P Pulse Ox O2 Delivery O2 Flow Rate FiO2 05/14/16 12:00 94 Room Air 05/14/16 11:45 37.1 81 16 170/77 94 Room Air 05/14/16 08:00 94 Room Air 05/14/16 07:56 37.3 76 20 165/0 96 Room Air Physical Exam: General- No acute distress Head- atraumatic Eyes- PERRL, EOMI ENT- oropharynx clear Neck- supple, no JVD Lungs- clear to auscultation and percussion Heart- regular rhythm; no murmur Abdomen- normal bowel sounds, soft Extremities- no calf tenderness Neuro- alert, oriented x 3; PERRL, EOMI Skin- warm & dry Laboratory Results: Last 24 Hours Test 05/13/16 16:04 05/13/16 20:10 05/14/16 05:30 05/14/16 06:27 Bedside Glucose 107 mg/dl 87 mg/dl 92 mg/dl Sodium Level 137 mmol/L Potassium Level 3.5 mmol/L Chloride Level 101 mmol/L Carbon Dioxide Level 27 mmol/L Anion Gap 9.0 mmol/L Blood Urea Nitrogen 14 mg/dl Creatinine 0.81 mg/dl Est Creatinine Clear Calc Drug Dose 74.5 ml/min Estimated GFR () 93.9 Estimated GFR (Non- 81.0 BUN/Creatinine Ratio 17.9 Random Glucose 84 mg/dl Calcium Level 8.0 mg/dl Magnesium Level 1.8 mg/dl Test 05/14/16 11:10 Bedside Glucose 100 mg/dl Assessment & Plan GENERALIZED WEAKNESS Possible related to influenza Afebrile, no leukocytosis, HD stable CXR- no infiltrate UA and Ucx negative He did good with physical therapy INFLUENZA A Staring on Tamiflu to complete 5 days course LIGHTHEADEDNESS Resolved Electrolytes Imbalance K replaced Mg stable Continue monitor HYPERTENSION Continue lisinopril Continue monitor BP DM TYPE 2 Hold Actos HBA1c 6.2 on 05/13/16 Insulin sliding scale coverage DYSLIPIDEMIA Statin intolerance per records BPH Continue Flomax, Proscar, Vesicare DEPRESSION Continue Cymbalta and Abilify DVT PROPHYLAXIS Lovenox SQ CODE STATUS DNR per my discussion with the patient DISPOSITION Follows with Dr. Casey Zhang for primary care Will transfer to medical floor Current Inpatient Medications: Current Inpatient Medications Medications (Trade) Dose Ordered Sig/Brittaney Route Start Time Stop Time Status Last Admin Dose Admin Enoxaparin Sodium (Lovenox Inj) 40 mg QPM SC 05/12/16 21:00 06/11/16 20:59 05/13/16 20:57 40 MG Acetaminophen (Tylenol Tab) 650 mg Q4H PRN PO 05/12/16 08:45 06/11/16 08:44 05/13/16 03:35 650 MG Ondansetron HCl (Zofran Inj) 4 mg Q6H PRN IV 05/12/16 08:45 06/11/16 08:44 Polyethylene (Miralax Powder Packet) 17 gm DAILY PRN PO 05/12/16 08:45 06/11/16 08:44 Insulin Glargine (Lantus Solostar Pen) 10 unit HS SC 05/12/16 21:00 06/11/16 20:59 05/13/16 21:31 10 UNIT Insulin Aspart (novoLOG ASPART) SLIDING SCALE If C... ACHS SC 05/12/16 11:00 06/11/16 10:59 05/14/16 11:46 2 UNITS Glucose (Glucose 40% Gel) 15-30 GRAMS 15 GRAMS... UD PRN PO 05/12/16 08:45 06/11/16 08:44 Glucose (Glucose Chew Tab) 4-8 Tablets 4 Tabl... UD PRN PO 05/12/16 08:45 06/11/16 08:44 Dextrose (Dextrose 50% 50ML Syringe) 25-50ML OF 50% DW IV FOR... UD PRN IV 05/12/16 08:45 06/11/16 08:44 Glucagon (Glucagon Inj) 1 mg UD PRN SQ 05/12/16 08:45 06/11/16 08:44 Aspirin (Ecotrin Tab) 81 mg HS PO 05/12/16 21:00 06/11/16 20:59 05/13/16 20:53 81 MG Colestipol HCl (Colestid Tab) 4 gm QD@1200 PO 05/12/16 12:00 06/11/16 11:59 05/14/16 11:47 4 GM Duloxetine HCl (Cymbalta Cap) 60 mg QAM PO 05/13/16 09:00 06/12/16 08:59 05/14/16 08:00 60 MG Finasteride (Proscar Tab) 5 mg HS PO 05/12/16 21:00 06/11/16 20:59 05/13/16 20:54 5 MG Fish Oil ([place]-3 (Purified Fish Oil) Cap) 1 gm BID PO 05/12/16 21:00 06/11/16 20:59 05/14/16 08:01 1 GM Lisinopril (Zestril Tab) 5 mg QPM PO 05/12/16 21:00 06/11/16 20:59 05/13/16 20:54 5 MG Multivitamins (Multivitamin Tab) 1 tab QAM PO 05/13/16 09:00 06/12/16 08:59 05/14/16 08:01 1 TAB Potassium Chloride (Klor-Con Tab) 20 meq QAM PO 05/13/16 09:00 06/12/16 08:59 05/14/16 08:00 20 MEQ Tamsulosin HCl (Flomax Cap) 0.4 mg HS PO 05/12/16 21:00 06/11/16 20:59 05/13/16 20:51 0.4 MG Zolpidem Tartrate (Ambien Tab) 5 mg HS PRN PO 05/12/16 21:00 06/11/16 20:59 Aripiprazole (Abilify Soln) 1 mg DAILY PO 05/12/16 11:15 06/11/16 11:14 05/14/16 08:00 1 MG Cholecalciferol (Vitamin D Tab) 2,000 inter.unit QAM PO 05/13/16 09:00 06/12/16 08:59 05/14/16 08:03 2,000 INTER.UNIT Miscellaneous Information (Order Awaiting Action) 1 ea QS N/A 05/12/16 16:00 06/11/16 15:59 Albuterol/ Ipratropium (Duoneb) 3 ml Q4R PRN INH 05/12/16 09:45 06/11/16 09:44 Miscellaneous (Iv Fluids Completed) 1 ea PRN PRN N/A 05/12/16 12:00 05/12/17 11:59 Hydralazine HCl (HydrALAZINE INJ) 10 mg Q6H PRN IV. 05/12/16 19:45 06/11/16 19:44 Oseltamivir Phosphate (Tamiflu Cap) 75 mg BID PO 05/13/16 21:00 05/18/16 20:59 05/14/16 08:01 75 MG Guaifenesin (Organidin Nr Tab) 200 mg Q8 PO 05/14/16 14:00 06/13/16 13:59
[2016-05-14] MEDS: GUAIFENESIN 200 MG TAB PO SCH ×2 (14:10→21:36)
[2016-05-14] MEDS: LISINOPRIL 5 MG TAB PO SCH (21:36)
[2016-05-14] MEDS: ASPIRIN 81 MG ECTAB PO SCH (21:36)
[2016-05-14] MEDS: TAMSULOSIN HCL 0.4 MG CAP PO SCH (21:37)
[2016-05-14] MEDS: ENOXAPARIN 40 MG/0.4 ML SYR SC SCH (21:37)
[2016-05-14] MEDS: FINASTERIDE 5 MG TAB PO SCH (21:37)
[2016-05-14] MEDS: INSULIN GLARGINE SOLOSTAR 100 UNITS/ML 3 ML PEN SC SCH (21:38)
[2016-05-15] MEDS: GUAIFENESIN 200 MG TAB PO SCH ×2 (06:30→14:04)
[2016-05-15 06:49] LABS: HEMATOCRIT 31.5 % (42-52); MEAN CELL VOLUME 90.5 fL (80-100); MEAN CORPUSCULAR HGB CONC 34.3 g/dl (32-36); MEAN PLATELET VOLUME 10.7 fL (7.4-10.4); PLATELET COUNT 171 K/uL (130-400); RED BLOOD COUNT 3.48 M/uL (4.7-6.1); WHITE BLOOD COUNT 7.71 K/uL (4.8-10.8)
[2016-05-15 07:17] LABS: BUN/CREATININE RATIO 16.4 (10-20); CALCIUM 8.2 mg/dl (8.5-10.1); CREATININE 0.87 mg/dl (0.60-1.40); MAGNESIUM 1.8 mg/dl (1.8-2.4); POTASSIUM 3.7 mmol/L (3.5-5.1)
[2016-05-15 08:00] VITALS: O2SAT 92
[2016-05-15] MEDS: OMEGA-3 (PURIFIED FISH OIL) 1 GM CAP PO SCH (08:18)
[2016-05-15] MEDS: DULOXETINE HCL 60 MG CAP PO SCH (08:18)
[2016-05-15] MEDS: POTASSIUM CHLORIDE 20 MEQ TABCR PO SCH (08:19)
[2016-05-15] MEDS: MULTIVITAMIN TAB PO SCH (08:19)
[2016-05-15] MEDS: OSELTAMIVIR PHOSPHATE 75 MG CAP PO SCH (08:19)
[2016-05-15] MEDS: ARIPIprazole 1 MG/ML ORAL SOLN 150 ML BTL PO SCH (08:19)
[2016-05-15] MEDS: INSULIN ASPART 100 UNITS/ML 3 ML PEN SC SCH ×2 (08:21→12:39)
[2016-05-15 08:29] VITALS: BP 155/71; PULSE 73; TEMP 36.6; O2SAT 92
[2016-05-15] MEDS ORDERED: CHOLECALCIFEROL 1000 INTER.UNIT TAB PO SCH (12:30)
[2016-05-15] MEDS: COLESTIPOL HCL 1 GM TAB PO SCH (12:40)
--- NOTE | 2016-05-15 12:57 | Progress Note ---
Medicine Progress Note Date & Time of Visit: May 15, 2016 at 12:47. Subjective Pt was seen and examined Pt sitting in chair comfortable with no distress Pt said that he feels fine he said that his is in the hospital with the flu Pt said that his cough improved denies any chest pain, palpitation, dizziness and sob Objective Last 8 Hrs Date Time Temp Pulse Resp B/P Pulse Ox O2 Delivery O2 Flow Rate FiO2 05/15/16 08:29 36.6 73 20 155/71 92 Room Air 05/15/16 08:00 92 Room Air Physical Exam: General- No acute distress Head- atraumatic Eyes- PERRL, EOMI ENT- oropharynx clear Neck- supple, no JVD Lungs- clear to auscultation and percussion Heart- regular rhythm; no murmur Abdomen- normal bowel sounds, soft Extremities- no calf tenderness Neuro- alert, oriented x 3; PERRL, EOMI Skin- warm & dry Laboratory Results: Last 24 Hours Test 05/14/16 16:15 05/14/16 20:36 05/15/16 06:10 05/15/16 07:39 Bedside Glucose 114 mg/dl 95 mg/dl 88 mg/dl White Blood Count 7.71 K/uL Red Blood Count 3.48 M/uL Hemoglobin 10.8 g/dL Hematocrit 31.5 % Mean Corpuscular Volume 90.5 fL Mean Corpuscular Hemoglobin 31.0 pg Mean Corpuscular Hemoglobin Concent 34.3 g/dl RDW Standard Deviation 46.2 fL RDW Coefficient of Variation 13.8 % Platelet Count 171 K/uL Mean Platelet Volume 10.7 fL Sodium Level 138 mmol/L Potassium Level 3.7 mmol/L Chloride Level 100 mmol/L Carbon Dioxide Level 28 mmol/L Anion Gap 10.0 mmol/L Blood Urea Nitrogen 14 mg/dl Creatinine 0.87 mg/dl Est Creatinine Clear Calc Drug Dose 69.3 ml/min Estimated GFR () 91.2 Estimated GFR (Non- 78.7 BUN/Creatinine Ratio 16.4 Random Glucose 86 mg/dl Calcium Level 8.2 mg/dl Magnesium Level 1.8 mg/dl Test 05/15/16 11:38 Bedside Glucose 127 mg/dl Assessment & Plan GENERALIZED WEAKNESS Possible related to influenza Afebrile, no leukocytosis, HD stable CXR- no infiltrate UA and Ucx negative He did good with physical therapy Continue PT/OT INFLUENZA A Need to complete 5 days course of Tamiflu On droplet precaution LIGHTHEADEDNESS Resolved Electrolytes Imbalance stable HYPERTENSION Continue lisinopril 5mg If BP stays elevating, consider to increase lisinopril to 10mg Continue monitor BP DM TYPE 2 resume Actos upon discharge HBA1c 6.2 on 05/13/16 Insulin sliding scale coverage DYSLIPIDEMIA Statin intolerance per records BPH Continue Flomax, Proscar, Vesicare DEPRESSION Continue Cymbalta and Abilify DVT PROPHYLAXIS Lovenox SQ CODE STATUS DNR per my discussion with the patient DISPOSITION Will discharge today with Home health Follows with her primary care physician Dr. Casey Zhang on May 22 @ 3:20 pm Current Inpatient Medications: Current Inpatient Medications Medications (Trade) Dose Ordered Sig/Brittaney Route Start Time Stop Time Status Last Admin Dose Admin Enoxaparin Sodium (Lovenox Inj) 40 mg QPM SC 05/12/16 21:00 06/11/16 20:59 05/14/16 21:37 40 MG Acetaminophen (Tylenol Tab) 650 mg Q4H PRN PO 05/12/16 08:45 06/11/16 08:44 05/13/16 03:35 650 MG Ondansetron HCl (Zofran Inj) 4 mg Q6H PRN IV 05/12/16 08:45 06/11/16 08:44 Polyethylene (Miralax Powder Packet) 17 gm DAILY PRN PO 05/12/16 08:45 06/11/16 08:44 Insulin Glargine (Lantus Solostar Pen) 10 unit HS SC 05/12/16 21:00 06/11/16 20:59 05/14/16 21:38 10 UNIT Insulin Aspart (novoLOG ASPART) SLIDING SCALE If C... ACHS SC 05/12/16 11:00 06/11/16 10:59 05/14/16 17:17 2 UNITS Glucose (Glucose 40% Gel) 15-30 GRAMS 15 GRAMS... UD PRN PO 05/12/16 08:45 06/11/16 08:44 Glucose (Glucose Chew Tab) 4-8 Tablets 4 Tabl... UD PRN PO 05/12/16 08:45 06/11/16 08:44 Dextrose (Dextrose 50% 50ML Syringe) 25-50ML OF 50% DW IV FOR... UD PRN IV 05/12/16 08:45 06/11/16 08:44 Glucagon (Glucagon Inj) 1 mg UD PRN SQ 05/12/16 08:45 06/11/16 08:44 Aspirin (Ecotrin Tab) 81 mg HS PO 05/12/16 21:00 06/11/16 20:59 05/14/16 21:36 81 MG Colestipol HCl (Colestid Tab) 4 gm QD@1200 PO 05/12/16 12:00 06/11/16 11:59 05/15/16 12:40 4 GM Duloxetine HCl (Cymbalta Cap) 60 mg QAM PO 05/13/16 09:00 06/12/16 08:59 05/15/16 08:18 60 MG Finasteride (Proscar Tab) 5 mg HS PO 05/12/16 21:00 06/11/16 20:59 05/14/16 21:37 5 MG Fish Oil ([place]-3 (Purified Fish Oil) Cap) 1 gm BID PO 05/12/16 21:00 06/11/16 20:59 05/15/16 08:18 1 GM Lisinopril (Zestril Tab) 5 mg QPM PO 05/12/16 21:00 06/11/16 20:59 05/14/16 21:36 5 MG Multivitamins (Multivitamin Tab) 1 tab QAM PO 05/13/16 09:00 06/12/16 08:59 05/15/16 08:19 1 TAB Potassium Chloride (Klor-Con Tab) 20 meq QAM PO 05/13/16 09:00 06/12/16 08:59 05/15/16 08:19 20 MEQ Tamsulosin HCl (Flomax Cap) 0.4 mg HS PO 05/12/16 21:00 06/11/16 20:59 05/14/16 21:37 0.4 MG Zolpidem Tartrate (Ambien Tab) 5 mg HS PRN PO 05/12/16 21:00 06/11/16 20:59 Aripiprazole (Abilify Soln) 1 mg DAILY PO 05/12/16 11:15 06/11/16 11:14 05/15/16 08:19 1 MG Miscellaneous Information (Order Awaiting Action) 1 ea QS N/A 05/12/16 16:00 06/11/16 15:59 Albuterol/ Ipratropium (Duoneb) 3 ml Q4R PRN INH 05/12/16 09:45 06/11/16 09:44 Miscellaneous (Iv Fluids Completed) 1 ea PRN PRN N/A 05/12/16 12:00 05/12/17 11:59 Hydralazine HCl (HydrALAZINE INJ) 10 mg Q6H PRN IV. 05/12/16 19:45 06/11/16 19:44 Oseltamivir Phosphate (Tamiflu Cap) 75 mg BID PO 05/13/16 21:00 05/18/16 20:59 05/15/16 08:19 75 MG Guaifenesin (Organidin Nr Tab) 200 mg Q8 PO 05/14/16 14:00 06/13/16 13:59 05/15/16 06:30 200 MG Cholecalciferol (Vitamin D Tab) 2,000 inter.unit QAM PO 05/15/16 12:30 06/12/16 08:59 05/15/16 12:40 2,000 INTER.UNIT
--- NOTE | 2016-05-15 13:04 | Discharge Instructions ---
Discharge Instructions Admission Reason for Admission: Generalized Weakness, Upper Respiratory Infection Discharge Discharge Diagnosis / Problem: Influenza A, Electrolytes imbalance, HTN, DM Type, Dyslipidemia Discharge Goals Goal(s): Decrease discomfort, Improve function, Improve disease control Activity Recommendations Activity Limitations: resume your previous activity (as tolerated) . Instructions / Follow-Up Instructions / Follow-Up Discharge today with Home health Continue PT/OT Follows with her primary care physician Dr. Casey Zhang on May 22 @ 3:20 pm Complete the course of Tamiflu Current Hospital Diet Patient's current hospital diet: Diabetes Type 2 Diet, AHA Diet (Heart Healthy) Discharge Diet Recommended Diet: AHA Diet (Heart Healthy), Diabetes Type 2 Diet Pending Studies Studies pending at discharge: no Laboratory Results Hemoglobin A1c Test 05/13/16 05:45 Range/Units Estimated Average Glucose 131 mg/dl Hemoglobin A1c 6.2 H 4.5-5.6 % Medical Emergencies . Who to Call and When: Medical Emergencies: If at any time you feel your situation is an emergency, please call 911 immediately. . Non-Emergent Contact Non-Emergency issues call your: Primary Care Provider Call Non-Emergent contact if: you have any medication questions . . "Provider Documentation" section prepared by Anjali Stover. VTE Core Measure Inpt VTE Proph given/why not?: Enoxaparin (Lovenox)SQ
[2016-05-15] MEDS ORDERED: GUAI1TAB68 PO (13:11)
[2016-05-15] MEDS ORDERED: TMF75 PO (13:25)
[2016-05-15 14:09] VITALS: BP 155/71; PULSE 73; TEMP 36.6; O2SAT 92
--- NOTE | 2016-05-19 00:25 | Discharge Summary ---
Discharge Summary Admission Date: May 12, 2016 at 08:48 Discharge Date: May 15, 2016 Discharge Disposition: Home with services Principal Diagnosis: Upper Respiratory Infection Secondary Diagnoses/Problems: Influenza A Electrolytes imbalance HTN DM Type Dyslipidemia Medication Reconciliation New Medications: Guaifenesin (Organ-I Nr) 200 Mg Tab 200 MG PO Q8 PRN for Cough for 7 Days, #21 TAB Oseltamivir Phosphate (Tamiflu) 75 Mg Cap 75 MG PO BID for 2 Days, #4 CAP Continued Medications: Aripiprazole (Abilify) 2 Mg Tab 1 MG PO DAILY Aspirin (Aspirin Ec) 81 Mg Tab 81 MG PO HS Cholecalciferol (Vitamin D) 2,000 Unit Tab 2000 INTER.UNIT PO QAM Colestipol HCl (Micronized Colestipol HCl) 1 Gm Tab 4 GM PO QD@1200 Duloxetine Hcl (Cymbalta) 60 Mg Cap 60 MG PO QAM Finasteride (Proscar) 5 Mg Tab 1 TAB PO HS, 0 Refills Fish Oil ([place]-3) 1 Ea Cap 1200 MG PO BID Ipratropium [place] (Nasal) (Ipratropium [place]) 0.06 % Spr 1-2 SPRAYS PURA DAILY Lisinopril (Zestril) 5 Mg Tab 5 MG PO QPM, TAB Multivitamin (Multivitamin) Tab 1 TAB PO QAM, TAB Pioglitazone (Actos) 30 Mg Tab 30 MG PO DAILY, 3 Refills Potassium Ext Rel (Klor-Con) 20 Meq Tabcr 20 MEQ PO QAM, TAB Solifenacin Succinate (Vesicare) 5 Mg Tab 1 TAB PO DAILY, 11 Refills Tamsulosin HCl (Tamsulosin HCl) 0.4 Mg Cap 0.4 MG PO HS Zolpidem Tartrate (Zolpidem Tartrate) 10 Mg Tab 5 MG PO HS PRN for Sleep Admission Information HPI (per Admitting provider): This is an 85 year old male with PMH of DM type 2, HTN, dyslipidemia, depression , BPH, who presents to the ED with cough and lightheadedness. Patient states symptoms started yesterday with dry cough, rhinorrhea, lightheadedness especially with cough and upon standing, generalized weakness, and fatigue. He reports chronic dysarthria with unknown etiology for which he follows with a neurologist. Denies fever, chills, myalgias, headache, vision change, swallowing difficulty, focal weakness or numbness, chest pain, SOB, abdominal pain, N/V/D, appetite loss, dysuria, frequency. Denies recent sick contact, hospitalization, or antibiotics. Denies history of lung or cardiac disease. Pt lives with and ambulates unassisted. Physical Exam (per Admitting): General Appearance: WD/WN, no apparent distress, + pertinent finding ( pleasant alert elderly male, lying in bed, no distress) Head: normocephalic, atraumatic Eyes: normal inspection, PERRL, EOMI, sclerae normal ENT: normal ENT inspection, hearing grossly normal, TMs normal, pharynx normal Neck: supple, trachea midline Respiratory/Chest: no respiratory distress, no accessory muscle use, + pertinent finding (trace wheeze on the left base, coughing often during exam) Cardiovascular: regular rate, rhythm, no murmur Abdomen/GI: normal bowel sounds, non tender, soft Extremities/Musculoskelatal: normal inspection, no calf tenderness, no pedal edema Neurologic/Psych: 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 motor 4/5 in all extremities, sensation to light touch grossly intact all extremities. ) Skin: normal color, warm/dry, + pertinent finding (skin appears dry) Hospital Course GENERALIZED WEAKNESS Possible related to influenza Afebrile, no leukocytosis, HD stable CXR- no infiltrate UA and Ucx negative He did good with physical therapy Continue PT/OT INFLUENZA A Need to complete 5 days course of Tamiflu On droplet precaution LIGHTHEADEDNESS Resolved Electrolytes Imbalance stable HYPERTENSION Continue lisinopril 5mg If BP stays elevating, consider to increase lisinopril to 10mg Continue monitor BP DM TYPE 2 resume Actos upon discharge HBA1c 6.2 on 05/13/16 Insulin sliding scale coverage DYSLIPIDEMIA Statin intolerance per records BPH Continue Flomax, Proscar, Vesicare DEPRESSION Continue Cymbalta and Abilify DVT PROPHYLAXIS Lovenox SQ CODE STATUS DNR per my discussion with the patient DISPOSITION Will discharge today with Home health Follows with her primary care physician Dr. Casey Zhang on May 22 @ 3:20 pm Total time spent on discharge = 45 minutes This includes examination of the patient, discharge planning, medication reconciliation, and communication with other providers. Discharge Instructions Discharge Instructions Admission Reason for Admission: Generalized Weakness, Upper Respiratory Infection Discharge Discharge Diagnosis / Problem: Influenza A, Electrolytes imbalance, HTN, DM Type, Dyslipidemia Discharge Goals Goal(s): Decrease discomfort, Improve function, Improve disease control Activity Recommendations Activity Limitations: resume your previous activity (as tolerated) . Instructions / Follow-Up Instructions / Follow-Up Discharge today with Home health Continue PT/OT Follows with her primary care physician Dr. Casey Zhang on May 22 @ 3:20 pm Complete the course of Tamiflu Current Hospital Diet Patient's current hospital diet: Diabetes Type 2 Diet, AHA Diet (Heart Healthy) Discharge Diet Recommended Diet: AHA Diet (Heart Healthy), Diabetes Type 2 Diet Pending Studies Studies pending at discharge: no Laboratory Results Hemoglobin A1c Test 05/13/16 05:45 Range/Units Estimated Average Glucose 131 mg/dl Hemoglobin A1c 6.2 H 4.5-5.6 % Medical Emergencies . Who to Call and When: Medical Emergencies: If at any time you feel your situation is an emergency, please call 911 immediately. . Non-Emergent Contact Non-Emergency issues call your: Primary Care Provider Call Non-Emergent contact if: you have any medication questions . . "Provider Documentation" section prepared by Anjali Stover. VTE Core Measure Inpt VTE Proph given/why not?: Enoxaparin (Lovenox)SQ Additional Copies To Casey Zhang D.O.
== END 2016-05-15 15:00 | disposition home health service (06) ==
LOC: ENRESERVDT → ENRESERVTM → EDBD 04:49 → C.EDB 04:50 → C.2T 08:48 → EDBEDREQ 08:59 → C.2T 21:40 → C.MS2W 05-14 22:54
PROVIDERS: ADMIT Hospitalist; ATTEND Internal Medicine
DX: J06.9 Acute upper respiratory infection, unspecified (principal); E87.8 Other disorders of electrolyte and fluid balance, not elsewhere classified; E11.9 Type 2 diabetes mellitus without complications; R42 Dizziness and giddiness; J11.1 Influenza due to unidentified influenza virus with other respiratory manifestations; E78.5 Hyperlipidemia, unspecified; E83.42 Hypomagnesemia; F32.9 Major depressive disorder, single episode, unspecified; I10 Essential (primary) hypertension; N40.0 Benign prostatic hyperplasia without lower urinary tract symptoms; Z66 Do not resuscitate; Z87.891 Personal history of nicotine dependence; F41.9 Anxiety disorder, unspecified; F80.0 Phonological disorder; Z82.49 Family history of ischemic heart disease and other diseases of the circulatory system; Z80.1 Family history of malignant neoplasm of trachea, bronchus and lung; Z98.890 Other specified postprocedural states

== ENCOUNTER 2016-08-15 18:05 | Emergency (ER) | payer BC, OTHER ==
[~2016-08-15] VITALS: Ht 170.2 cm; Wt 89.0 kg
[~2016-08-15 18:05] MED LIST changes: -ACT/45 PO; +ACT30 PO; -ATEN50TA8 PO; -FINA1TAB36 PO; +FINA5TAB4 PO; +GUAI1TAB68 PO; -GUAI1TAB69 PO; -IPRA0.037 NAE; +IPRA0.06 NAE; +SOLI5TAB2 PO; +TMF75 PO; -[UNRECOGNIZED DRUG - OTHER] PO
[2016-08-15 18:13] VITALS: TEMP 36.9; O2SAT 100; Ht 170.2 cm; Wt 89.0 kg
[2016-08-15] MEDS ORDERED: LISINOPRIL 20 MG TAB PO STA (18:31)
--- NOTE | 2016-08-15 18:45 | DIAGNOSTIC IMAGING REPORT ---
CHEST ONE VIEW PORTABLE CLINICAL HISTORY: Altered mental status. Weakness. COMPARISON STUDY: 05/12/2016 FINDINGS: The heart is at the upper limits of normal in size. There is no failure. There is no focal pulmonary consolidation. There are no pleural effusions.[ IMPRESSION: No active disease in the chest. Electronically signed by: Jude Gotti M.D. 08/15/2016 6:44 PM Dictated Date/Time: 08/15/2016 6:44 PM
[2016-08-15 19:11] LABS: BASO % 0.2 %; BASO ABS # 0.02 K/uL (0-0.2); COMPLETE YES; EOS % 1.4 %; HEMATOCRIT 39.9 % (42-52); IG% 0.2 %; LYMPH % 34.3 %; LYMPH ABS # 2.98 K/uL (1.2-3.4); MEAN CELL VOLUME 92.8 fL (80-100); MEAN CORPUSCULAR HEMOGLOBIN 30.7 pg (25-34); MEAN CORPUSCULAR HGB CONC 33.1 g/dl (32-36); MEAN PLATELET VOLUME 10.1 fL (7.4-10.4); MONO % 7.7 %; NEUT % 56.2 %; PLATELET COUNT 217 K/uL (130-400); WHITE BLOOD COUNT 8.69 K/uL (4.8-10.8)
[2016-08-15 19:22] LABS: URINE APPEARANCE CLEAR (CLEAR); URINE BILIRUBIN NEG (NEG); URINE COLOR YELLOW; URINE NITRITE NEG (NEG); URINE SPECIFIC GRAVITY 1.018 (1.000-1.030); UROBILINOGEN NEG (NEG); ZZUR CULT IF INDIC CLEAN CATCH NO
[2016-08-15 19:23] LABS: MANUAL MICROSCOPIC REQUIRED? NO; REVIEW REQ? NO
[2016-08-15 19:39] LABS: BUN/CREATININE RATIO 25.2 (10-20); CALCIUM 9.1 mg/dl (8.5-10.1); CREATININE 0.91 mg/dl (0.60-1.40); POTASSIUM 3.8 mmol/L (3.5-5.1)
[2016-08-15 19:49] LABS: THYROID STIMULATING HORMONE 2.55 uIu/ml (0.300-4.500)
[2016-08-15 20:02] VITALS: BP 165/66; PULSE 83; O2SAT 100
--- NOTE | 2016-08-15 20:59 | EMERGENCY ROOM VISIT NOTE ---
History Report prepared by Kolby: Micki Rodriguez Under the Supervision of: Dr. Chintan Alarcon M.D. First contact with patient: 18:26 Chief Complaint: HYPERTENSION Stated Complaint: HYPERTENSION History of Present Illness The patient is a 85 year old male who presents to the Emergency Room with complaints of persistent high blood pressure starting 3 weeks ago. He presents to the ED by EMS from [facility]. 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 He has a history of high blood pressure and is on lisinopril. His dose was increased from 5 mg to 20 mg 1 week ago. His blood pressure continues to be high. He reports feeling woozy. He denies any headache, chest pain, SOB, arm pain, or leg pain. He has not taken his lisinopril today as he takes it before going to bed. Source of History: patient Onset: 3 weeks ago Position: other (global) Quality: other (high blood pressure) Timing: other (persistent) Associated Symptoms: No SOB, No chest pain, No headache Note: Pt reports feeling woozy. Pt denies arm pain, leg pain. Review of Systems See HPI for pertinent positives & negatives. A total of 10 systems reviewed and were otherwise negative. Past Medical & Surgical Medical Problems: (1) Anxiety (2) BPH (benign prostatic hypertrophy) (3) Diverticulosis Colon (W/O Ment Of Hemorrhage) (4) DM type 2 (diabetes mellitus, type 2) (5) Dyslipidemia (6) History of depression (7) Hypertension Nos (8) Lumbago (9) Speech articulation disorder Surgical Problems: (1) H/O sinus surgery (2) History of dental surgery Family History FH: congestive heart failure BROTHER FH: lung cancer BROTHER Hypertension Lung disease Social History Smoking Status: Former Smoker Alcohol Use: none Drug Use: none Marital Status: Housing Status: lives with significant other Occupation Status: retired Current/Historical Medications Scheduled Aripiprazole (Abilify), 1.5 MG PO DAILY Aspirin (Aspirin Ec), 81 MG PO HS Cholecalciferol (Vitamin D), 2,000 INTER.UNIT PO QAM Colestipol HCl (Micronized Colestipol HCl), 4 GM PO QD@1200 Duloxetine Hcl (Cymbalta), 120 MG PO QAM Finasteride (Proscar), 1 TAB PO HS Fish Oil (Thom[place]-3), 1,200 MG PO BID Ipratropium [place] (Nasal) (Ipratropium [place]), 1-2 SPRAYS PURA DAILY Lisinopril (Zestril), 20 MG PO QPM Multivitamin (Multivitamin), 1 TAB PO QAM Pioglitazone (Actos), 30 MG PO DAILY Potassium Ext Rel (Klor-Con), 20 MEQ PO QAM Solifenacin Succinate (Vesicare), 1 TAB PO DAILY Scheduled PRN Guaifenesin (Organ-I Nr), 200 MG PO Q8 PRN for Cough Zolpidem Tartrate (Zolpidem Tartrate), 5 MG PO HS PRN for Sleep Allergies Coded Allergies: Statins (Verified Adverse Reaction, Intermediate, MUSCLE PAIN, 08/15/16) Physical Exam Vital Signs Date Time Temp Pulse Resp B/P Pulse Ox O2 Delivery O2 Flow Rate FiO2 08/15/16 20:02 83 20 165/66 100 Room Air 08/15/16 19:07 77 24 173/75 95 08/15/16 18:46 74 08/15/16 18:13 100 Room Air 08/15/16 18:13 36.9 87 18 199/83 99 Room Air Physical Exam GENERAL: Patient is in no acute distress. HEENT: No acute trauma, normocephalic atraumatic, mucous membranes moist, no nasal congestion, no scleral icterus. NECK: No stridor, no adenopathy, no meningismus, trachea is midline. LUNGS: Clear to auscultation bilaterally, no wheeze, no rhonchi, breath sounds equal. HEART: Without murmurs gallops or rubs, regular rate and rhythm. ABDOMEN: Soft, nontender, bowel sounds positive, no hernias, no peritonitis. EXTREMITIES: No cyanosis or edema, full range of motion of all the joints without pain or difficulty, no signs for acute trauma. NEUROLOGIC: Oriented x 3, no acute motor or sensory deficits, no focal weakness , speech deficit consistent with past history, no cerebellar deficits. SKIN: No rash, no jaundice, no diaphoresis. Medical Decision & Procedures ER Provider Diagnostic Interpretation: X-ray results as stated below per interpretation by me and the radiologist: CHEST ONE VIEW PORTABLE CLINICAL HISTORY: Altered mental status. Weakness. COMPARISON STUDY: 05/12/2016 FINDINGS: The heart is at the upper limits of normal in size. There is no failure. There is no focal pulmonary consolidation. There are no pleural effusions.[ IMPRESSION: No active disease in the chest. Electronically signed by: Jude Gotti M.D. 08/15/2016 6:44 PM Dictated Date/Time: 08/15/2016 6:44 PM Laboratory Results 08/15/16 19:00 Red Blood Count 4.30, Mean Corpuscular Volume 92.8, Mean Corpuscular Hemoglobin 30.7, Mean Corpuscular Hemoglobin Concent 33.1, Mean Platelet Volume 10.1, Neutrophils (%) (Auto) 56.2, Lymphocytes (%) (Auto) 34.3, Monocytes (%) (Auto) 7.7, Eosinophils (%) (Auto) 1.4, Basophils (%) (Auto) 0.2, Neutrophils # (Auto) 4.88, Lymphocytes # (Auto) 2.98, Monocytes # (Auto) 0.67, Eosinophils # (Auto) 0.12, Basophils # (Auto) 0.02 08/15/16 19:00 Test 08/15/16 19:00 08/15/16 19:10 White Blood Count 8.69 K/uL (4.8-10.8) Red Blood Count 4.30 M/uL (4.7-6.1) Hemoglobin 13.2 g/dL (14.0-18.0) Hematocrit 39.9 % (42-52) Mean Corpuscular Volume 92.8 fL (80-100) Mean Corpuscular Hemoglobin 30.7 pg (25-34) Mean Corpuscular Hemoglobin Concent 33.1 g/dl (32-36) Platelet Count 217 K/uL (130-400) Mean Platelet Volume 10.1 fL (7.4-10.4) Neutrophils (%) (Auto) 56.2 % Lymphocytes (%) (Auto) 34.3 % Monocytes (%) (Auto) 7.7 % Eosinophils (%) (Auto) 1.4 % Basophils (%) (Auto) 0.2 % Neutrophils # (Auto) 4.88 K/uL (1.4-6.5) Lymphocytes # (Auto) 2.98 K/uL (1.2-3.4) Monocytes # (Auto) 0.67 K/uL (0.11-0.59) Eosinophils # (Auto) 0.12 K/uL (0-0.5) Basophils # (Auto) 0.02 K/uL (0-0.2) RDW Standard Deviation 46.3 fL (36.4-46.3) RDW Coefficient of Variation 13.7 % (11.5-14.5) Immature Granulocyte % (Auto) 0.2 % Immature Granulocyte # (Auto) 0.02 K/uL (0.00-0.02) Anion Gap 5.0 mmol/L (3-11) Est Creatinine Clear Calc Drug Dose 63.2 ml/min Estimated GFR () 88.8 Estimated GFR (Non- 76.6 BUN/Creatinine Ratio 25.2 (10-20) Calcium Level 9.1 mg/dl (8.5-10.1) Total Bilirubin 0.7 mg/dl (0.2-1) Aspartate Amino Transf (AST/SGOT) 24 U/L (15-37) Alanine Aminotransferase (ALT/SGPT) 27 U/L (12-78) Alkaline Phosphatase 84 U/L (45-117) Troponin I 0.018 ng/ml (0-0.045) Total Protein 6.7 gm/dl (6.4-8.2) Albumin 3.3 gm/dl (3.4-5.0) Globulin 3.4 gm/dl (2.5-4.0) Albumin/Globulin Ratio 1.0 (0.9-2) Thyroid Stimulating Hormone (TSH) 2.550 uIu/ml (0.300-4.500) Urine Color YELLOW Urine Appearance CLEAR (CLEAR) Urine pH 5.0 (4.5-7.5) Urine Specific Parker 1.018 (1.000-1.030) Urine Protein NEG (NEG) Urine Glucose (UA) NEG (NEG) Urine Ketones NEG (NEG) Urine Occult Blood NEG (NEG) Urine Nitrite NEG (NEG) Urine Bilirubin NEG (NEG) Urine Urobilinogen NEG (NEG) Urine Leukocyte Esterase NEG (NEG) Laboratory results reviewed by me. Medications Administered Medications (Trade) Dose Ordered Sig/Brittaney Route Start Time Stop Time Status Last Admin Dose Admin Lisinopril (Zestril Tab) 40 mg NOW STAT PO 08/15/16 18:31 08/15/16 18:36 DC 08/15/16 19:05 40 MG ECG Indication: other (hypertension) Rate (beats per minute): 77 Rhythm: sinus rhythm Findings: PAC, no acute ischemic change ED Course 1827: The patient was evaluated in room A3. A complete history and physical exam was performed. 1830: Lisinopril 40 mg PO. 2010: I reevaluated the patient. He is resting comfortably. I discussed results and discharge instructions: he verbalized understanding and agreement. The patient is ready for discharge. Medical Decision Differential diagnosis: essential hypertension, renal failure, infection, cardiac ischemia, dysrhythmia, anemia. There is no leukocytosis or concerning anemia. No significant electrolyte abnormality, kidney failure or hepatitis. Urinalysis does not show evidence for infection. Chest x-ray shows no mediastinal widening, pneumonia or CHF. EKG shows a sinus rhythm, no acute ischemia. On exam, there were no focal neurologic deficits. The patient appears to be in a euthyroid state. The patient received 40 mg of oral lisinopril. He is doing well, his blood pressure is decreasing. The patient is being discharged. He will increase his lisinopril to 40 mg a day instead of 20. The patient can follow with his doctor this week, if worsening, he will return. Impression Primary Impression: Hypertension Scribe Attestation The scribe's documentation has been prepared under my direction and personally reviewed by me in its entirety. I confirm that the note above accurately reflects all work, treatment, procedures, and medical decision making performed by me. Departure Information Dispostion Home / Self-Care Referrals Casey Zhang D.O. (PCP) Forms HOME CARE DOCUMENTATION FORM, IMPORTANT VISIT INFORMATION Patient Instructions My [facility] Additional Instructions increase Lisinopril to 40 mg daily see your doctor Thursday as scheduled keep a log of your blood pressure--3x per day readings return if worsening testing today was all ok
[2017-01-21] MEDS ORDERED: CIPR1TAB10 PO (14:41)
== END 2016-08-15 20:22 | disposition home or self-care (01) ==
LOC: EDBD 18:05 → C.EDA 18:06
DX: I10 Essential (primary) hypertension (principal); F41.9 Anxiety disorder, unspecified; N40.0 Benign prostatic hyperplasia without lower urinary tract symptoms; K57.30 Diverticulosis of large intestine without perforation or abscess without bleeding; E11.9 Type 2 diabetes mellitus without complications; E78.5 Hyperlipidemia, unspecified; F32.9 Major depressive disorder, single episode, unspecified; Z82.49 Family history of ischemic heart disease and other diseases of the circulatory system; Z80.9 Family history of malignant neoplasm, unspecified; Z83.6 Family history of other diseases of the respiratory system; Z87.891 Personal history of nicotine dependence; Z79.82 Long term (current) use of aspirin; Z79.899 Other long term (current) drug therapy

== ENCOUNTER 2017-01-19 19:07 | Inpatient (IN) | payer BC, OTHER ==
[~2017-01-19] VITALS: Ht 170.2 cm; Wt 81.4 kg
[~2017-01-19 19:07] MED LIST changes: -FLM4 PO; -TMF75 PO
[2017-01-19] MEDS ORDERED: SODIUM CHLORIDE 0.9% 1000ML 1,000 ML IV STA (19:28)
--- NOTE | 2017-01-19 20:07 | DIAGNOSTIC IMAGING REPORT ---
CHEST ONE VIEW PORTABLE HISTORY: EVALUATE WEAKNESS COMPARISON: Chest 08/15/2016. FINDINGS: The lungs are clear. Cardiac silhouette is normal in size. No pleural effusions. No pneumothorax. IMPRESSION: No acute process. Electronically signed by: Lukas Portillo M.D. 01/19/2017 8:05 PM Dictated Date/Time: 01/19/2017 8:05 PM
[2017-01-19 20:13] LABS: BASO % 0.1 %; BASO ABS # 0.01 K/uL (0-0.2); COMPLETE YES; EOS % 0.1 %; HEMATOCRIT 33.5 % (42-52); IG% 0.3 %; LYMPH ABS # 0.81 K/uL (1.2-3.4); MEAN CELL VOLUME 93.6 fL (80-100); MEAN CORPUSCULAR HEMOGLOBIN 31.3 pg (25-34); MEAN CORPUSCULAR HGB CONC 33.4 g/dl (32-36); MEAN PLATELET VOLUME 10.4 fL (7.4-10.4); MONO % 11.6 %; NEUT % 78.9 %; PLATELET COUNT 196 K/uL (130-400); RED BLOOD COUNT 3.58 M/uL (4.7-6.1); WHITE BLOOD COUNT 8.96 K/uL (4.8-10.8)
[2017-01-19 20:32] LABS: BUN/CREATININE RATIO 22.9 (10-20); CALCIUM 8.7 mg/dl (8.5-10.1); CREATININE 1.2 mg/dl (0.60-1.40); MAGNESIUM 1.8 mg/dl (1.8-2.4); POTASSIUM 4.1 mmol/L (3.5-5.1)
[2017-01-19 20:40] LABS: PROTHROMBIN TIME (PATIENT) 11.1 SECONDS (9.0-12.0)
[2017-01-19 20:41] LABS: THYROID STIMULATING HORMONE 0.942 uIu/ml (0.300-4.500)
[2017-01-19 21:02] LABS: URINE APPEARANCE TURBID (CLEAR); URINE BILIRUBIN NEG (NEG); URINE COLOR DK YELLOW; URINE EPITHELIAL CELL AUTO 0-5 /lpf (0-5); URINE NITRITE POS (NEG); URINE SPECIFIC GRAVITY 1.018 (1.000-1.030); UROBILINOGEN NEG (NEG)
[2017-01-19 21:03] LABS: MANUAL MICROSCOPIC REQUIRED? NO; REVIEW REQ? NO
[2017-01-19] MEDS ORDERED: CEFTRIAXONE SOD INJ 1 GM ADDVIAL IV STA (21:10)
--- NOTE | 2017-01-19 21:27 | DIAGNOSTIC IMAGING REPORT ---
HEAD CT NONCONTRAST CT DOSE: 614.27 mGy.cm HISTORY: EVALUATE WEAKNESS TECHNIQUE: Multiaxial CT images of the head were performed without the use of intravenous contrast. Automated exposure control was utilized for this study. A dose lowering technique was utilized adhering to the principles of ALARA. Comparison: Head CT 09/06/2013. Findings: The paranasal sinuses and mastoid air cells are clear. The calvarium and skull base are intact. The ventricles and sulci are within normal limits. There is no mass, hematoma, midline shift, or acute infarct. Impression: No acute intracranial abnormality. Electronically signed by: Lukas Portillo M.D. 01/19/2017 9:26 PM Dictated Date/Time: 01/19/2017 9:22 PM
--- NOTE | 2017-01-19 23:57 | EMERGENCY ROOM VISIT NOTE ---
History Report prepared by Kolby: Emmy Penny Under the Supervision of: Dr. Nishant Barrios M.D. First contact with patient: 19:28 Chief Complaint: DIZZY Stated Complaint: DIZZY History of Present Illness The patient is an 86 year old male who presents to the Emergency Room with complaints of persistent dizziness for the past 1 day. He is accompanied by 2 friends. He states he has been feeling "lousy" recently and reports the dizziness started last night. His friends state the patients called them this evening to bring the patient to the ED when she realized the patient had a fever. Last night, the patient "almost fell" but denies any injuries. He also admits to some recent urinary symptoms. The patient denies LOC, headache, chills , diaphoresis, visual changes, neck pain, chest pain, breathing difficulties, nausea, vomiting, abdominal pain, back pain, melena, hematochezia, numbness, weakness, lymphadenopathy, rash, or other complaints. His PCP is Dr. Zhang with [facility]. 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 A total of ten systems were reviewed and were otherwise negative. Past Medical & Surgical Medical Problems: (1) Anxiety (2) BPH (benign prostatic hypertrophy) (3) Diverticulosis Colon (W/O Ment Of Hemorrhage) (4) DM type 2 (diabetes mellitus, type 2) (5) Dyslipidemia (6) History of depression (7) Hypertension Nos (8) Lumbago (9) Speech articulation disorder (10) UTI (urinary tract infection) Surgical Problems: (1) H/O sinus surgery (2) History of dental surgery Family History FH: congestive heart failure BROTHER FH: lung cancer BROTHER Hypertension Lung disease Social History Smoking Status: Former Smoker Alcohol Use: none Drug Use: none Marital Status: Housing Status: lives with significant other Occupation Status: retired Current/Historical Medications Scheduled Aripiprazole (Abilify), 1.5 MG PO DAILY Aspirin (Aspirin Ec), 81 MG PO HS Cholecalciferol (Vitamin D), 2,000 INTER.UNIT PO QAM Colestipol HCl (Micronized Colestipol HCl), 4 GM PO QD@1200 Duloxetine Hcl (Cymbalta), 120 MG PO QAM Finasteride (Proscar), 1 TAB PO HS Fish Oil ([place]-3), 1,200 MG PO BID Ipratropium [place] (Nasal) (Ipratropium [place]), 1-2 SPRAYS PURA DAILY Lisinopril (Zestril), 20 MG PO QPM Multivitamin (Multivitamin), 1 TAB PO QAM Pioglitazone (Actos), 30 MG PO DAILY Potassium Ext Rel (Klor-Con), 20 MEQ PO QAM Solifenacin Succinate (Vesicare), 1 TAB PO DAILY Scheduled PRN Guaifenesin (Organ-I Nr), 200 MG PO Q8 PRN for Cough Zolpidem Tartrate (Zolpidem Tartrate), 5 MG PO HS PRN for Sleep Allergies Coded Allergies: Statins (Verified Adverse Reaction, Intermediate, MUSCLE PAIN, 08/15/16) Physical Exam Vital Signs Date Time Temp Pulse Resp B/P (MAP) Pulse Ox O2 Delivery O2 Flow Rate FiO2 01/19/17 23:32 84 96 01/19/17 23:17 77 96 01/19/17 23:02 88 17 155/60 94 01/19/17 22:47 73 97 01/19/17 22:32 73 20 95 01/19/17 22:31 126/49 01/19/17 22:17 72 14 99 01/19/17 22:11 133/55 01/19/17 22:02 73 18 97 01/19/17 21:57 77 17 97 01/19/17 21:42 76 14 98 01/19/17 21:27 71 20 97 01/19/17 20:57 68 12 95 01/19/17 20:52 70 97 01/19/17 20:37 83 13 94 01/19/17 20:32 131/55 01/19/17 20:21 112/47 01/19/17 20:20 115/59 01/19/17 20:19 113/54 01/19/17 20:18 72 113/54 78 115/59 81 112/47 01/19/17 20:15 72 01/19/17 20:07 72 19 94 Room Air 01/19/17 20:01 116/50 01/19/17 19:22 37.9 84 20 123/62 95 Room Air Physical Exam GENERAL: Awake, alert, tired-appearing, in no distress, slurred speech (chronic ) HENT: Normocephalic, atraumatic. Oropharynx unremarkable. EYES: Normal conjunctiva. Sclera non-icteric. NECK: Supple. No nuchal rigidity. FROM. No JVD. RESPIRATORY: Clear to auscultation. CARDIAC: Regular rate, normal rhythm. Extremities warm and well perfused. Pulses equal. ABDOMEN: Soft, non-distended. No tenderness to palpation. No rebound or guarding. No masses. RECTAL: Deferred. MUSCULOSKELETAL: Chest examination reveals no tenderness. The back is symmetrical on inspection without obvious abnormality. There is no CVA tenderness to palpation. No joint edema. LOWER EXTREMITIES: Calves are equal size bilaterally and non-tender. No edema. No discoloration. NEURO: Normal sensorium. No sensory or motor deficits noted. SKIN: No rash or jaundice noted. Medical Decision & Procedures ER Provider Diagnostic Interpretation: Radiology results as stated below per my review and radiologist interpretation: CHEST ONE VIEW PORTABLE HISTORY: EVALUATE WEAKNESS COMPARISON: Chest 08/15/2016. FINDINGS: The lungs are clear. Cardiac silhouette is normal in size. No pleural effusions. No pneumothorax. IMPRESSION: No acute process. Electronically signed by: Lukas Portillo M.D. 01/19/2017 8:[address] CT DOSE: 614.27 mGy.cm HISTORY: EVALUATE WEAKNESS TECHNIQUE: Multiaxial CT images of the head were performed without the use of intravenous contrast. Automated exposure control was utilized for this study. A dose lowering technique was utilized adhering to the principles of ALARA. Comparison: Head CT 09/06/2013. Findings: The paranasal sinuses and mastoid air cells are clear. The calvarium and skull base are intact. The ventricles and sulci are within normal limits. There is no mass, hematoma, midline shift, or acute infarct. Impression: No acute intracranial abnormality. Electronically signed by: Lukas Portillo M.D. 01/19/2017 9:26 PM Laboratory Results 01/19/17 19:54 Red Blood Count 3.58, Mean Corpuscular Volume 93.6, Mean Corpuscular Hemoglobin 31.3, Mean Corpuscular Hemoglobin Concent 33.4, Mean Platelet Volume 10.4, Neutrophils (%) (Auto) 78.9, Lymphocytes (%) (Auto) 9.0, Monocytes (%) (Auto) 11.6, Eosinophils (%) (Auto) 0.1, Basophils (%) (Auto) 0.1, Neutrophils # (Auto ) 7.06, Lymphocytes # (Auto) 0.81, Monocytes # (Auto) 1.04, Eosinophils # (Auto ) 0.01, Basophils # (Auto) 0.01 01/19/17 19:54 Test 01/19/17 00:00 01/19/17 19:54 01/19/17 20:04 01/19/17 20:30 Influenza Type A Antigen Neg for Influ A (NEG) Influenza Type B Antigen Neg for Influ B (NEG) White Blood Count 8.96 K/uL (4.8-10.8) Red Blood Count 3.58 M/uL (4.7-6.1) Hemoglobin 11.2 g/dL (14.0-18.0) Hematocrit 33.5 % (42-52) Mean Corpuscular Volume 93.6 fL (80-100) Mean Corpuscular Hemoglobin 31.3 pg (25-34) Mean Corpuscular Hemoglobin Concent 33.4 g/dl (32-36) Platelet Count 196 K/uL (130-400) Mean Platelet Volume 10.4 fL (7.4-10.4) Neutrophils (%) (Auto) 78.9 % Lymphocytes (%) (Auto) 9.0 % Monocytes (%) (Auto) 11.6 % Eosinophils (%) (Auto) 0.1 % Basophils (%) (Auto) 0.1 % Neutrophils # (Auto) 7.06 K/uL (1.4-6.5) Lymphocytes # (Auto) 0.81 K/uL (1.2-3.4) Monocytes # (Auto) 1.04 K/uL (0.11-0.59) Eosinophils # (Auto) 0.01 K/uL (0-0.5) Basophils # (Auto) 0.01 K/uL (0-0.2) RDW Standard Deviation 47.0 fL (36.4-46.3) RDW Coefficient of Variation 13.7 % (11.5-14.5) Immature Granulocyte % (Auto) 0.3 % Immature Granulocyte # (Auto) 0.03 K/uL (0.00-0.02) Prothrombin Time 11.1 SECONDS (9.0-12.0) Prothromb Time International Ratio 1.0 (0.9-1.1) Activated Partial Thromboplast Time 25.0 SECONDS (21.0-31.0) Partial Thromboplastin Ratio 1.0 Anion Gap 6.0 mmol/L (3-11) Est Creatinine Clear Calc Drug Dose 45.9 ml/min Estimated GFR () 63.1 Estimated GFR (Non- 54.4 BUN/Creatinine Ratio 22.9 (10-20) Calcium Level 8.7 mg/dl (8.5-10.1) Magnesium Level 1.8 mg/dl (1.8-2.4) Total Bilirubin 1.3 mg/dl (0.2-1) Direct Bilirubin 0.3 mg/dl (0-0.2) Aspartate Amino Transf (AST/SGOT) 22 U/L (15-37) Alanine Aminotransferase (ALT/SGPT) 23 U/L (12-78) Alkaline Phosphatase 75 U/L (45-117) Total Creatine Kinase 91 U/L (39-308) Creatine Kinase MB 0.9 ng/ml (0.5-3.6) Creatine Kinase MB Ratio 1.0 (0-3.0) Troponin I 0.024 ng/ml (0-0.045) Total Protein 6.5 gm/dl (6.4-8.2) Albumin 3.0 gm/dl (3.4-5.0) Lipase 67 U/L (73-393) Thyroid Stimulating Hormone (TSH) 0.942 uIu/ml (0.300-4.500) Bedside Lactic Acid Venous 0.73 mmol/L (0.90-1.70) Urine Color DK YELLOW Urine Appearance TURBID (CLEAR) Urine pH 5.0 (4.5-7.5) Urine Specific Force 1.018 (1.000-1.030) Urine Protein 2+ (NEG) Urine Glucose (UA) NEG (NEG) Urine Ketones TRACE (NEG) Urine Occult Blood 2+ (NEG) Urine Nitrite POS (NEG) Urine Bilirubin NEG (NEG) Urine Urobilinogen NEG (NEG) Urine Leukocyte Esterase LARGE (NEG) Urine WBC (Auto) >30 /hpf (0-5) Urine RBC (Auto) 10-30 /hpf (0-4) Urine Hyaline Casts (Auto) 0 /lpf (0-5) Urine Epithelial Cells (Auto) 0-5 /lpf (0-5) Urine Bacteria (Auto) 4+ (NEG) Laboratory results reviewed by me Medications Administered Medications (Trade) Dose Ordered Sig/Brittaney Route Start Time Stop Time Status Last Admin Dose Admin Sodium Chloride 1,000 ml @ 125 mls/hr Q8H STAT IV 01/19/17 19:28 01/20/17 03:27 01/19/17 20:10 125 MLS/HR Ceftriaxone Sodium (Rocephin Inj) 1 gm NOW STAT IV 01/19/17 21:10 01/19/17 21:12 DC 01/19/17 21:35 1 GM ECG Indication: weakness Rate (beats per minute): 71 Rhythm: normal sinus Findings: no acute ischemic change, no ectopy ED Course 1927: 1000 ml @ 125 mls/hr IV. 1937: The patient was evaluated in room A4B. A complete history and physical exam was performed. 2109: Rocephin 1 gm IV. 2124: I reevaluated the patient. He is resting comfortably. I discussed my recommendation he remain in the hospital for further evaluation and management and he verbalized complete understanding and agreement. 2154: [facility] the [facility] The patient will be further evaluated. Medical Decision Triage Nursing notes reviewed. The patient's presentation and history were concerning for weakness. Etiologies such as metabolic, infection, hypo/hyperglycemia, electrolyte abnormalities, cardiac sources, intracerebral event, toxicologic, neurologic, as well as others were entertained. The patient was evaluated. He has examination as above. Blood work was obtained. Imaging ordered. ECG was unremarkable. The patient had significant leukocytosis or electrolyte abnormality. Cardiac markers negative. The patient 's urinalysis was very concerning for infection. I suspect this is the cause of his weakness and deterioration at home. He was given a dose of IV Rocephin. The patient was hydrated. Consultation was made with the [facility] service. The patient was evaluated in the Emergency Room for further management. Medication Reconcilliation Current Medication List: was personally reviewed by me Consults Time Called: 2139 Consulting Physician[facility] Returned Call: [phone] [facility]. The patient will be further evaluated. Impression Primary Impression: Weakness Additional Impression: UTI (urinary tract infection) Scribe Attestation The scribe's documentation has been prepared under my direction and personally reviewed by me in its entirety. I confirm that the note above accurately reflects all work, treatment, procedures, and medical decision making performed by me. Departure Information Dispostion Being Evaluated By Hospitalist Referrals Casey Zhang D.OJordana (PCP) Patient Instructions My [facility] Problem Qualifiers
[2017-01-20 00:15] VITALS: BP 169/68; PULSE 100; TEMP 37; O2SAT 94; Ht 170.2 cm; Wt 81.4 kg
[2017-01-20] MEDS ORDERED: GLUCOSE 10 TABS/TUBE PO PRN (01:15)
[2017-01-20] MEDS ORDERED: POLYETHYLENE (MIRALAX) 17 GM PACK PO PRN (01:15)
[2017-01-20] MEDS ORDERED: ONDANSETRON INJ 2 MG/ML 2 ML VIAL IV PRN (01:15)
[2017-01-20] MEDS ORDERED: ACETAMINOPHEN 325 MG TAB PO PRN (01:15)
[2017-01-20] MEDS ORDERED: GLUCOSE 40% GEL 15 GM TUBE PO PRN (01:15)
[2017-01-20] MEDS ORDERED: ZOLPIDEM TARTRATE 5 MG TAB PO PRN (01:15)
[2017-01-20] MEDS ORDERED: DEXTROSE 50% 50 ML SYR IV PRN (01:15)
[2017-01-20] MEDS ORDERED: GLUCAGON FOR INJ 1 MG VIAL SQ PRN (01:15)
--- NOTE | 2017-01-20 01:21 | History and Physical ---
History & Physical Date & Time of Service: Jan 20, 2017 at 01:13 Chief Complaint: UTI Primary Care Physician: Casey Zhang D.O. History of Present Illness Source: patient, clinic records, hospital records 86 yo M presents with lightheadedness x 2 days along with dysuria and urinary urgency. He is on Vesicare, also, and reports a h/o urinary control issues in the past. He denies any fevers, chills, abdominal pain, nausea, vomiting, diarrhea, headaches, shortness of breath, chest pain, or any other symptoms. Because he had the lightheadedness he did have some trouble walking earlier but there were no focal findings. He did have a temp of 100.2F on arrival to the ER today. UA was positive on workup. 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 Surgical Problems: (1) H/O sinus surgery Status: Chronic (2) History of dental surgery Status: Chronic Family History FH: congestive heart failure BROTHER FH: lung cancer BROTHER Hypertension Lung disease Social History Smoking Status: Former Smoker Smokeless Tobacco Use: Unknown Alcohol Use: socially Drug Use: none Marital Status: Housing status: lives with family Occupational Status: retired Multi-Drug Resistant Organisms History of MDRO: No Allergies Coded Allergies: Statins (Verified Adverse Reaction, Intermediate, MUSCLE PAIN, 08/15/16) Home Medications Scheduled Aripiprazole (Abilify), 1 MG PO DAILY Aspirin (Aspirin Ec), 81 MG PO HS Cholecalciferol (Vitamin D), 2,000 INTER.UNIT PO QAM Colestipol HCl (Micronized Colestipol HCl), 4 GM PO QD@1200 Duloxetine Hcl (Cymbalta), 120 MG PO QAM Finasteride (Proscar), 1 TAB PO HS Fish Oil (Graham-3), 1,200 MG PO BID Ipratropium Driscoll (Nasal) (Ipratropium Driscoll), 1-2 SPRAYS PURA DAILY Lisinopril (Zestril), 20 MG PO QPM Multivitamin (Multivitamin), 1 TAB PO QAM Pioglitazone (Actos), 30 MG PO DAILY Potassium Ext Rel (Klor-Con), 20 MEQ PO QAM Solifenacin Succinate (Vesicare), 1 TAB PO DAILY Scheduled PRN Guaifenesin (Organ-I Nr), 200 MG PO Q8 PRN for Cough Zolpidem Tartrate (Zolpidem Tartrate), 5 MG PO HS PRN for Sleep Review of Systems At least ten systems reviewed and negative except as indicated in HPI Physical Exam Vital Signs Date Time Temp Pulse Resp B/P (MAP) Pulse Ox O2 Delivery O2 Flow Rate FiO2 01/19/17 23:32 84 96 01/19/17 23:17 77 96 01/19/17 23:02 88 17 155/60 94 01/19/17 22:47 73 97 01/19/17 22:32 73 20 95 01/19/17 22:31 126/49 01/19/17 22:17 72 14 99 01/19/17 22:11 133/55 01/19/17 22:02 73 18 97 01/19/17 21:57 77 17 97 01/19/17 21:42 76 14 98 01/19/17 21:27 71 20 97 01/19/17 20:57 68 12 95 01/19/17 20:52 70 97 01/19/17 20:37 83 13 94 01/19/17 20:32 131/55 01/19/17 20:21 112/47 01/19/17 20:20 115/59 01/19/17 20:19 113/54 01/19/17 20:18 72 113/54 78 115/59 81 112/47 01/19/17 20:15 72 01/19/17 20:07 72 19 94 Room Air 01/19/17 20:01 116/50 01/19/17 19:22 37.9 84 20 123/62 95 Room Air General Appearance: WD/WN, no apparent distress (pt appears euvolemic), + pertinent finding (cannot articulate words well, answering questions appropriately) Head: normocephalic, atraumatic Eyes: normal inspection, PERRL, sclerae normal ENT: hearing grossly normal, + pertinent finding (mucous membranes are moist) Neck: supple, trachea midline Respiratory/Chest: lungs clear, normal breath sounds, no respiratory distress, no accessory muscle use Cardiovascular: regular rate, rhythm, no edema, no gallop, no murmur, normal peripheral pulses Abdomen/GI: normal bowel sounds, non tender, soft, no organomegaly Back: normal inspection, no CVA tenderness Extremities/Musculoskelatal: normal inspection, no calf tenderness Neurologic/Psych: no motor/sensory deficits, alert, normal reflexes, oriented x 3 Skin: normal color, warm/dry, no rash Diagnostics Laboratory Results 01/19/17 19:54 Red Blood Count 3.58, Mean Corpuscular Volume 93.6, Mean Corpuscular Hemoglobin 31.3, Mean Corpuscular Hemoglobin Concent 33.4, Mean Platelet Volume 10.4, Neutrophils (%) (Auto) 78.9, Lymphocytes (%) (Auto) 9.0, Monocytes (%) (Auto) 11.6, Eosinophils (%) (Auto) 0.1, Basophils (%) (Auto) 0.1, Neutrophils # (Auto ) 7.06, Lymphocytes # (Auto) 0.81, Monocytes # (Auto) 1.04, Eosinophils # (Auto ) 0.01, Basophils # (Auto) 0.01 01/19/17 19:54 Test 01/19/17 00:00 01/19/17 19:54 01/19/17 20:04 01/19/17 20:30 Influenza Type A Antigen Neg for Influ A (NEG) Influenza Type B Antigen Neg for Influ B (NEG) White Blood Count 8.96 K/uL (4.8-10.8) Red Blood Count 3.58 M/uL (4.7-6.1) Hemoglobin 11.2 g/dL (14.0-18.0) Hematocrit 33.5 % (42-52) Mean Corpuscular Volume 93.6 fL (80-100) Mean Corpuscular Hemoglobin 31.3 pg (25-34) Mean Corpuscular Hemoglobin Concent 33.4 g/dl (32-36) Platelet Count 196 K/uL (130-400) Mean Platelet Volume 10.4 fL (7.4-10.4) Neutrophils (%) (Auto) 78.9 % Lymphocytes (%) (Auto) 9.0 % Monocytes (%) (Auto) 11.6 % Eosinophils (%) (Auto) 0.1 % Basophils (%) (Auto) 0.1 % Neutrophils # (Auto) 7.06 K/uL (1.4-6.5) Lymphocytes # (Auto) 0.81 K/uL (1.2-3.4) Monocytes # (Auto) 1.04 K/uL (0.11-0.59) Eosinophils # (Auto) 0.01 K/uL (0-0.5) Basophils # (Auto) 0.01 K/uL (0-0.2) RDW Standard Deviation 47.0 fL (36.4-46.3) RDW Coefficient of Variation 13.7 % (11.5-14.5) Immature Granulocyte % (Auto) 0.3 % Immature Granulocyte # (Auto) 0.03 K/uL (0.00-0.02) Prothrombin Time 11.1 SECONDS (9.0-12.0) Prothromb Time International Ratio 1.0 (0.9-1.1) Activated Partial Thromboplast Time 25.0 SECONDS (21.0-31.0) Partial Thromboplastin Ratio 1.0 Anion Gap 6.0 mmol/L (3-11) Est Creatinine Clear Calc Drug Dose 45.9 ml/min Estimated GFR () 63.1 Estimated GFR (Non- 54.4 BUN/Creatinine Ratio 22.9 (10-20) Calcium Level 8.7 mg/dl (8.5-10.1) Magnesium Level 1.8 mg/dl (1.8-2.4) Total Bilirubin 1.3 mg/dl (0.2-1) Direct Bilirubin 0.3 mg/dl (0-0.2) Aspartate Amino Transf (AST/SGOT) 22 U/L (15-37) Alanine Aminotransferase (ALT/SGPT) 23 U/L (12-78) Alkaline Phosphatase 75 U/L (45-117) Total Creatine Kinase 91 U/L (39-308) Creatine Kinase MB 0.9 ng/ml (0.5-3.6) Creatine Kinase MB Ratio 1.0 (0-3.0) Troponin I 0.024 ng/ml (0-0.045) Total Protein 6.5 gm/dl (6.4-8.2) Albumin 3.0 gm/dl (3.4-5.0) Lipase 67 U/L (73-393) Thyroid Stimulating Hormone (TSH) 0.942 uIu/ml (0.300-4.500) Bedside Lactic Acid Venous 0.73 mmol/L (0.90-1.70) Urine Color DK YELLOW Urine Appearance TURBID (CLEAR) Urine pH 5.0 (4.5-7.5) Urine Specific Graham 1.018 (1.000-1.030) Urine Protein 2+ (NEG) Urine Glucose (UA) NEG (NEG) Urine Ketones TRACE (NEG) Urine Occult Blood 2+ (NEG) Urine Nitrite POS (NEG) Urine Bilirubin NEG (NEG) Urine Urobilinogen NEG (NEG) Urine Leukocyte Esterase LARGE (NEG) Urine WBC (Auto) >30 /hpf (0-5) Urine RBC (Auto) 10-30 /hpf (0-4) Urine Hyaline Casts (Auto) 0 /lpf (0-5) Urine Epithelial Cells (Auto) 0-5 /lpf (0-5) Urine Bacteria (Auto) 4+ (NEG) Date/Time Source Procedure Growth Status 01/19/17 21:28 Blood Blood Culture Pending Received 01/19/17 20:30 Urine , Clean Catch Urine Culture Pending Received Results Past 24 Hours Test 01/19/17 19:54 01/19/17 20:04 01/19/17 20:30 Range/Units White Blood Count 8.96 4.8-10.8 K/uL Red Blood Count 3.58 4.7-6.1 M/uL Hemoglobin 11.2 14.0-18.0 g/dL Hematocrit 33.5 42-52 % Mean Corpuscular Volume 93.6 80-100 fL Mean Corpuscular Hemoglobin 31.3 25-34 pg Mean Corpuscular Hemoglobin Concent 33.4 32-36 g/dl Platelet Count 196 130-400 K/uL Mean Platelet Volume 10.4 7.4-10.4 fL Neutrophils (%) (Auto) 78.9 % Lymphocytes (%) (Auto) 9.0 % Monocytes (%) (Auto) 11.6 % Eosinophils (%) (Auto) 0.1 % Basophils (%) (Auto) 0.1 % Neutrophils # (Auto) 7.06 1.4-6.5 K/uL Lymphocytes # (Auto) 0.81 1.2-3.4 K/uL Monocytes # (Auto) 1.04 0.11-0.59 K/uL Eosinophils # (Auto) 0.01 0-0.5 K/uL Basophils # (Auto) 0.01 0-0.2 K/uL RDW Standard Deviation 47.0 36.4-46.3 fL RDW Coefficient of Variation 13.7 11.5-14.5 % Immature Granulocyte % (Auto) 0.3 % Immature Granulocyte # (Auto) 0.03 0.00-0.02 K/uL Prothrombin Time 11.1 9.0-12.0 SECONDS Prothromb Time International Ratio 1.0 0.9-1.1 Activated Partial Thromboplast Time 25.0 21.0-31.0 SECONDS Partial Thromboplastin Ratio 1.0 Sodium Level 137 136-145 mmol/L Potassium Level 4.1 3.5-5.1 mmol/L Chloride Level 104 98-107 mmol/L Carbon Dioxide Level 28 21-32 mmol/L Anion Gap 6.0 3-11 mmol/L Blood Urea Nitrogen 28 7-18 mg/dl Creatinine 1.20 0.60-1.40 mg/dl Est Creatinine Clear Calc Drug Dose 45.9 ml/min Estimated GFR () 63.1 Estimated GFR (Non- 54.4 BUN/Creatinine Ratio 22.9 10-20 Random Glucose 160 70-99 mg/dl Calcium Level 8.7 8.5-10.1 mg/dl Magnesium Level 1.8 1.8-2.4 mg/dl Total Bilirubin 1.3 0.2-1 mg/dl Direct Bilirubin 0.3 0-0.2 mg/dl Aspartate Amino Transf (AST/SGOT) 22 15-37 U/L Alanine Aminotransferase (ALT/SGPT) 23 12-78 U/L Alkaline Phosphatase 75 45-117 U/L Total Creatine Kinase 91 39-308 U/L Creatine Kinase MB 0.9 0.5-3.6 ng/ml Creatine Kinase MB Ratio 1.0 0-3.0 Troponin I 0.024 0-0.045 ng/ml Total Protein 6.5 6.4-8.2 gm/dl Albumin 3.0 3.4-5.0 gm/dl Lipase 67 73-393 U/L Thyroid Stimulating Hormone (TSH) 0.942 0.300-4.500 uIu/ml Bedside Lactic Acid Venous 0.73 0.90-1.70 mmol/L Urine Color DK YELLOW Urine Appearance TURBID CLEAR Urine pH 5.0 4.5-7.5 Urine Specific Graham 1.018 1.000-1.030 Urine Protein 2+ NEG Urine Glucose (UA) NEG NEG Urine Ketones TRACE NEG Urine Occult Blood 2+ NEG Urine Nitrite POS NEG Urine Bilirubin NEG NEG Urine Urobilinogen NEG NEG Urine Leukocyte Esterase LARGE NEG Urine WBC (Auto) >30 0-5 /hpf Urine RBC (Auto) 10-30 0-4 /hpf Urine Hyaline Casts (Auto) 0 0-5 /lpf Urine Epithelial Cells (Auto) 0-5 0-5 /lpf Urine Bacteria (Auto) 4+ NEG Microbiology Results 01/19/17 Blood Culture, Received Pending 01/19/17 Blood Culture, Received Pending 01/19/17 Urine Culture, Received Pending Diagnostic Radiology CHEST ONE VIEW PORTABLE HISTORY: EVALUATE WEAKNESS COMPARISON: Chest 08/15/2016. FINDINGS: The lungs are clear. Cardiac silhouette is normal in size. No pleural effusions. No pneumothorax. IMPRESSION: No acute process. HEAD CT NONCONTRAST CT DOSE: 614.27 mGy.cm HISTORY: EVALUATE WEAKNESS TECHNIQUE: Multiaxial CT images of the head were performed without the use of intravenous contrast. Automated exposure control was utilized for this study. A dose lowering technique was utilized adhering to the principles of ALARA. Comparison: Head CT 09/06/2013. Findings: The paranasal sinuses and mastoid air cells are clear. The calvarium and skull base are intact. The ventricles and sulci are within normal limits. There is no mass, hematoma, midline shift, or acute infarct. Impression: No acute intracranial abnormality. Normal EKG Impression Assessment and Plan 86 yo M with lightheadedness and dysuria presents with UTI 1. Lightheadedness-PT/OT ordered, vit D found to be low and ergocalciferol was ordered for replacement. 2. UTI-Rocephin for empiric coverage, no evidence of pyelo. Likely the cause of his ambulatory dysfunction/lightheadedness. 3. Anemia-chronic, baseline. Likely anemia of chronic disease. No reports of bleeding. 4. [id number], hold metformin, cont ISS with carb coverage and Lantus while hospitalized. 5. BPH-cont home meds 6. speech articulation d/o DVT proph-Lovenox 40mg Full Code Dispo-Med/Surg. Gemma Diggs [facility] Med/Surg Resuscitation Status FULL RESUSCITATION VTE Prophylaxis VTE Risk Assessment Done? Y/N: Yes Risk Level: Moderate Given or contraindicated: Enoxaparin (Lovenox)SQ
[2017-01-20] MEDS ORDERED: [UNRECOGNIZED DRUG - REMARK] PRN (04:19)
[2017-01-20 06:59] VITALS: BP 119/57; PULSE 77; TEMP 36.8; O2SAT 93
[2017-01-20 07:09] VITALS: BP_SYST 111; BP_SYST 116; BP_SYST 120; BP_DIAS 60; BP_DIAS 61; BP_DIAS 63; PULSE 71; PULSE 81; PULSE 83; TEMP 37; O2SAT 94
[2017-01-20 07:43] LABS: MEAN CELL VOLUME 92.8 fL (80-100); MEAN CORPUSCULAR HEMOGLOBIN 31.3 pg (25-34); MEAN CORPUSCULAR HGB CONC 33.8 g/dl (32-36); MEAN PLATELET VOLUME 9.9 fL (7.4-10.4); PLATELET COUNT 164 K/uL (130-400); RED BLOOD COUNT 3.45 M/uL (4.7-6.1); WHITE BLOOD COUNT 8.71 K/uL (4.8-10.8)
[2017-01-20] MEDS: [UNRECOGNIZED DRUG - REMARK] SCH ×3 (08:00→23:35)
[2017-01-20] MEDS: ENOXAPARIN 40 MG/0.4 ML SYR SQ SCH (08:00)
[2017-01-20 08:09] LABS: ESTIMATED AVERAGE GLUCOSE 134 mg/dl; HA1C FLAG Normal (Normal)
[2017-01-20 08:22] LABS: BUN/CREATININE RATIO 25.8 (10-20); CALCIUM 8.3 mg/dl (8.5-10.1); MAGNESIUM 1.8 mg/dl (1.8-2.4); POTASSIUM 3.8 mmol/L (3.5-5.1)
[2017-01-20] MEDS: OMEGA-3 (PURIFIED FISH OIL) 1 GM CAP PO SCH ×2 (08:33→21:22)
[2017-01-20] MEDS: ARIPIprazole 1 MG/ML ORAL SOLN 150 ML BTL PO SCH (08:33)
[2017-01-20] MEDS: CHOLECALCIFEROL 1000 INTER.UNIT TAB PO SCH (08:33)
[2017-01-20] MEDS: POTASSIUM CHLORIDE 20 MEQ TABCR PO SCH (08:33)
[2017-01-20] MEDS: MULTIVITAMIN TAB PO SCH (08:33)
[2017-01-20] MEDS: DULOXETINE HCL 60 MG CAP PO SCH (08:33)
[2017-01-20] MEDS: INSULIN ASPART 100 UNITS/ML 3 ML PEN SC SCH ×4 (08:43→21:24)
[2017-01-20] MEDS: COLESTIPOL HCL 1 GM TAB PO SCH (13:39)
[2017-01-20 15:14] VITALS: BP 143/55; PULSE 83; TEMP 37.1; O2SAT 94
[2017-01-20 16:00] VITALS: O2SAT 94
--- NOTE | 2017-01-20 18:17 | Progress Note ---
Medicine Progress Note Date & Time of Visit: Jan 20, 2017 at 18:17. Objective Last 8 Hrs Date Time Temp Pulse Resp B/P (MAP) Pulse Ox O2 Delivery O2 Flow Rate FiO2 01/20/17 16:00 94 Room Air 01/20/17 15:14 37.1 83 16 143/55 (84 94 Physical Exam: General: adult, appears older than stated age Head: atraumatic, normocephalic Eyes: PERRL, EOMI, anicteric Neck: supple, no JVD, no carotids bruits appreciated Lungs: clear to auscultation bilaterally; no chest wall pain/tenderness to palpation noted Heart: RR; no murmur, no gallop, no rub appreciated, S1 and S2 auscultated Abdomen: soft, nontender, normal bowel sounds, no palpable masses, no notable hepatosplenomegaly Extremities: no edema, no calf tenderness Neuro: alert, oriented x 3; no facial palsy; no dysarthria; no acute focal deficits noted Skin: warm, dry, no rashes Laboratory Results: Last 24 Hours Test 01/19/17 19:54 01/19/17 20:04 01/19/17 20:30 01/20/17 07:29 White Blood Count 8.96 K/uL Red Blood Count 3.58 M/uL Hemoglobin 11.2 g/dL Hematocrit 33.5 % Mean Corpuscular Volume 93.6 fL Mean Corpuscular Hemoglobin 31.3 pg Mean Corpuscular Hemoglobin Concent 33.4 g/dl Platelet Count 196 K/uL Mean Platelet Volume 10.4 fL Neutrophils (%) (Auto) 78.9 % Lymphocytes (%) (Auto) 9.0 % Monocytes (%) (Auto) 11.6 % Eosinophils (%) (Auto) 0.1 % Basophils (%) (Auto) 0.1 % Neutrophils # (Auto) 7.06 K/uL Lymphocytes # (Auto) 0.81 K/uL Monocytes # (Auto) 1.04 K/uL Eosinophils # (Auto) 0.01 K/uL Basophils # (Auto) 0.01 K/uL RDW Standard Deviation 47.0 fL RDW Coefficient of Variation 13.7 % Immature Granulocyte % (Auto) 0.3 % Immature Granulocyte # (Auto) 0.03 K/uL Prothrombin Time 11.1 SECONDS Prothromb Time International Ratio 1.0 Activated Partial Thromboplast Time 25.0 SECONDS Partial Thromboplastin Ratio 1.0 Sodium Level 137 mmol/L Potassium Level 4.1 mmol/L Chloride Level 104 mmol/L Carbon Dioxide Level 28 mmol/L Anion Gap 6.0 mmol/L Blood Urea Nitrogen 28 mg/dl Creatinine 1.20 mg/dl Est Creatinine Clear Calc Drug Dose 45.9 ml/min Estimated GFR () 63.1 Estimated GFR (Non- 54.4 BUN/Creatinine Ratio 22.9 Random Glucose 160 mg/dl Calcium Level 8.7 mg/dl Magnesium Level 1.8 mg/dl Total Bilirubin 1.3 mg/dl Direct Bilirubin 0.3 mg/dl Aspartate Amino Transf (AST/SGOT) 22 U/L Alanine Aminotransferase (ALT/SGPT) 23 U/L Alkaline Phosphatase 75 U/L Total Creatine Kinase 91 U/L Creatine Kinase MB 0.9 ng/ml Creatine Kinase MB Ratio 1.0 Troponin I 0.024 ng/ml Total Protein 6.5 gm/dl Albumin 3.0 gm/dl Lipase 67 U/L Thyroid Stimulating Hormone (TSH) 0.942 uIu/ml Bedside Lactic Acid Venous 0.73 mmol/L Urine Color DK YELLOW Urine Appearance TURBID Urine pH 5.0 Urine Specific Barnard 1.018 Urine Protein 2+ Urine Glucose (UA) NEG Urine Ketones TRACE Urine Occult Blood 2+ Urine Nitrite POS Urine Bilirubin NEG Urine Urobilinogen NEG Urine Leukocyte Esterase LARGE Urine WBC (Auto) >30 /hpf Urine RBC (Auto) 10-30 /hpf Urine Hyaline Casts (Auto) 0 /lpf Urine Epithelial Cells (Auto) 0-5 /lpf Urine Bacteria (Auto) 4+ Bedside Glucose 126 mg/dl Test 01/20/17 07:30 01/20/17 11:47 White Blood Count 8.71 K/uL Red Blood Count 3.45 M/uL Hemoglobin 10.8 g/dL Hematocrit 32.0 % Mean Corpuscular Volume 92.8 fL Mean Corpuscular Hemoglobin 31.3 pg Mean Corpuscular Hemoglobin Concent 33.8 g/dl RDW Standard Deviation 46.0 fL RDW Coefficient of Variation 13.6 % Platelet Count 164 K/uL Mean Platelet Volume 9.9 fL Sodium Level 137 mmol/L Potassium Level 3.8 mmol/L Chloride Level 104 mmol/L Carbon Dioxide Level 29 mmol/L Anion Gap 5.0 mmol/L Blood Urea Nitrogen 26 mg/dl Creatinine 1.00 mg/dl Est Creatinine Clear Calc Drug Dose 54.2 ml/min Estimated GFR () 78.6 Estimated GFR (Non- 67.8 BUN/Creatinine Ratio 25.8 Random Glucose 123 mg/dl Estimated Average Glucose 134 mg/dl Hemoglobin A1c 6.3 % Calcium Level 8.3 mg/dl Magnesium Level 1.8 mg/dl 25-Hydroxy Vitamin D Total 20.5 ng/ml Bedside Glucose 128 mg/dl Date/Time Source Procedure Growth Status 01/19/17 21:28 Blood Blood Culture Pending Received 01/19/17 19:54 Blood Blood Culture Pending Received 01/19/17 20:30 Urine , Clean Catch Urine Culture - Preliminary Gram Negative Bacilli Resulted Assessment & Plan Current Inpatient Medications: Current Inpatient Medications Medications (Trade) Dose Ordered Sig/Brittaney Route Start Time Stop Time Status Last Admin Dose Admin Enoxaparin Sodium (Lovenox Inj) 40 mg DAILY SQ 01/20/17 08:00 02/19/17 07:59 01/20/17 08:00 40 MG Acetaminophen (Tylenol Tab) 650 mg Q4H PRN PO 01/20/17 01:15 02/19/17 01:14 Polyethylene (Miralax Powder Packet) 17 gm DAILY PRN PO 01/20/17 01:15 02/19/17 01:14 01/20/17 17:02 17 GM Ondansetron HCl (Zofran Inj) 4 mg Q6H PRN IV 01/20/17 01:15 02/19/17 01:14 Insulin Glargine (Lantus Solostar Pen) 10 units HS SC 01/20/17 22:00 02/19/17 21:59 Insulin Aspart (novoLOG ASPART) SLIDING SCALE If C... ACHS SC 01/20/17 06:30 02/19/17 06:29 01/20/17 18:12 3 UNITS Glucose (Glucose 40% Gel) 15-30 GRAMS 15 GRAMS... UD PRN PO 01/20/17 01:15 02/19/17 01:14 Glucose (Glucose Chew Tab) 4-8 Tablets 4 Tabl... UD PRN PO 01/20/17 01:15 02/19/17 01:14 Dextrose (Dextrose 50% 50ML Syringe) 25-50ML OF 50% DW IV FOR... UD PRN IV 01/20/17 01:15 02/19/17 01:14 Glucagon (Glucagon Inj) 1 mg UD PRN SQ 01/20/17 01:15 02/19/17 01:14 Aspirin (Ecotrin Tab) 81 mg HS PO 01/20/17 22:00 02/19/17 21:59 Colestipol HCl (Colestid Tab) 4 gm DAILY@1200 PO 01/20/17 12:00 02/19/17 11:59 01/20/17 13:39 4 GM Duloxetine HCl (Cymbalta Cap) 120 mg QAM PO 01/20/17 08:00 02/19/17 07:59 01/20/17 08:33 120 MG Finasteride (Proscar Tab) 5 mg HS PO 01/20/17 22:00 02/19/17 21:59 Fish Oil (Dawes-3 (Purified Fish Oil) Cap) 1 gm BID PO 01/20/17 08:00 02/19/17 07:59 01/20/17 08:33 1 GM Lisinopril (Zestril Tab) 20 mg QPM PO 01/20/17 21:00 02/19/17 20:59 Multivitamins (Multivitamin Tab) 1 tab QAM PO 01/20/17 08:00 02/19/17 07:59 01/20/17 08:33 1 TAB Potassium Chloride (Klor-Con Tab) 20 meq QAM PO 01/20/17 08:00 02/19/17 07:59 01/20/17 08:33 20 MEQ Zolpidem Tartrate (Ambien Tab) 5 mg HS PRN PO 01/20/17 01:15 02/19/17 01:14 Miscellaneous Information (Order Awaiting Action) 1 ea QS N/A 01/20/17 08:00 02/19/17 07:59 Cholecalciferol (Vitamin D Tab) 2,000 inter.unit QAM PO 01/20/17 08:00 02/19/17 07:59 01/20/17 08:33 2,000 INTER.UNIT Aripiprazole (Abilify Soln) 1 mg DAILY PO 01/20/17 08:00 02/19/17 07:59 01/20/17 08:33 1 MG Miscellaneous Information (Pharmacy Consult) 1 ea UD PRN N/A 01/20/17 04:19 02/19/17 04:18 Ceftriaxone Sodium 1000 mg/ Dextrose 60 ml @ 120 mls/hr Q24H IV 01/20/17 22:00 01/29/17 21:59 Ergocalciferol (Vitamin D Cap) 50,000 interunit Q7D PO 01/20/17 09:00 02/19/17 08:59 UNV
[2017-01-20] MEDS: POLYETHYLENE (MIRALAX) 17 GM PACK PO SCH (18:30)
[2017-01-20] MEDS ORDERED: ERGOCALCIFEROL 50,000 INTER.UNIT CAP PO SCH (20:00)
[2017-01-20] MEDS ORDERED: LISINOPRIL 20 MG TAB PO SCH (21:00)
[2017-01-20] MEDS ORDERED: ASPIRIN 81 MG ECTAB PO SCH (22:00)
[2017-01-20] MEDS ORDERED: FINASTERIDE 5 MG TAB PO SCH (22:00)
[2017-01-20] MEDS ORDERED: CEFTRIAXONE SOD INJ 1000 MG in DEXTROSE 5% 50ML IV SCH (22:00)
[2017-01-20] MEDS ORDERED: INSULIN GLARGINE SOLOSTAR 100 UNITS/ML 3 ML PEN SC SCH (22:00)
[2017-01-21 00:10] VITALS: BP 138/69; PULSE 64; TEMP 37; O2SAT 94
[2017-01-21] MEDS: INSULIN ASPART 100 UNITS/ML 3 ML PEN SC SCH ×2 (06:30→12:50)
[2017-01-21 07:32] VITALS: BP 146/67; PULSE 67; TEMP 36.9; O2SAT 96
[2017-01-21] MEDS: [UNRECOGNIZED DRUG - REMARK] SCH (08:00)
[2017-01-21] MEDS: ENOXAPARIN 40 MG/0.4 ML SYR SQ SCH (08:00)
[2017-01-21] MEDS: POLYETHYLENE (MIRALAX) 17 GM PACK PO SCH (08:43)
[2017-01-21] MEDS: OMEGA-3 (PURIFIED FISH OIL) 1 GM CAP PO SCH (08:43)
[2017-01-21] MEDS: MULTIVITAMIN TAB PO SCH (08:43)
[2017-01-21] MEDS: CHOLECALCIFEROL 1000 INTER.UNIT TAB PO SCH (08:43)
[2017-01-21] MEDS: DULOXETINE HCL 60 MG CAP PO SCH (08:43)
[2017-01-21] MEDS: POTASSIUM CHLORIDE 20 MEQ TABCR PO SCH (08:44)
[2017-01-21] MEDS: ARIPIprazole 1 MG/ML ORAL SOLN 150 ML BTL PO SCH (08:44)
[2017-01-21] MEDS: COLESTIPOL HCL 1 GM TAB PO SCH (12:48)
--- NOTE | 2017-01-21 13:38 | Discharge Instructions ---
Discharge Instructions Date of Service Jan 21, 2017. Admission Reason for Admission: UTI Discharge Discharge Diagnosis / Problem: UTI, presyncope Discharge Goals Goal(s): Therapeutic intervention Activity Recommendations Activity Limitations: resume your previous activity Avoid any strenuous activity while taking Ciprofloxacin. Avoid sudden movements or position changes . Instructions / Follow-Up Instructions / Follow-Up Please see Dr. Zhang on January 23 at 10:55AM for hospital follow up Current Hospital Diet Patient's current hospital diet: Diabetes Type 2 Diet, AHA Diet (Heart Healthy) Discharge Diet Recommended Diet: AHA Diet (Heart Healthy), Diabetes Type 2 Diet Pending Studies Studies pending at discharge: no Laboratory Results Hemoglobin A1c Test 01/20/17 07:30 Range/Units Estimated Average Glucose 134 mg/dl Hemoglobin A1c 6.3 H 4.5-5.6 % Medical Emergencies . Who to Call and When: Medical Emergencies: If at any time you feel your situation is an emergency, please call 911 immediately. . Non-Emergent Contact Non-Emergency issues call your: Primary Care Provider If you become dizzy/lighteaded or feel as though you are going to pass out. . . "Provider Documentation" section prepared by Sara Delgado. . VTE Core Measure Inpt VTE Proph given/why not?: Enoxaparin (Lovenox)SQ
[2017-01-21 13:52] VITALS: BP 146/67; PULSE 67; TEMP 36.9; O2SAT 96
[2017-01-21] MEDS ORDERED: CIPR1TAB10 PO (14:41)
== END 2017-01-21 14:54 | disposition home or self-care (01) | DRG 690 ==
LOC: C.EDB 19:08 → C.MS4W 22:16 → ENRESERV 22:35
PROVIDERS: ADMIT Hospitalist; ATTEND Internal Medicine
DX: N39.0 Urinary tract infection, site not specified (principal); E11.9 Type 2 diabetes mellitus without complications; E78.5 Hyperlipidemia, unspecified; I10 Essential (primary) hypertension; D63.8 Anemia in other chronic diseases classified elsewhere; N40.0 Benign prostatic hyperplasia without lower urinary tract symptoms; Z87.891 Personal history of nicotine dependence; Z79.82 Long term (current) use of aspirin; Z79.899 Other long term (current) drug therapy; Z79.84 Long term (current) use of oral hypoglycemic drugs

== ENCOUNTER → 2017-05-22 | Outpatient (CLI) | payer BC, OTHER ==
[~2017-05-22] MED LIST changes: -GUAI1TAB68 PO
--- NOTE | 2017-05-22 14:28 | DIAGNOSTIC IMAGING REPORT ---
VIDEO SWALLOW CLINICAL HISTORY: 86 years-old Male presenting with POSSIBLE PENETRATION OR ASPIRATION OF FINE LIQUIDS. TECHNIQUE: Video fluoroscopic evaluation of swallowing was performed in the AP and lateral projections in conjunction with speech pathology. The patient was administered various textures, including thin liquids, nectar thick liquids, pudding, and solids. COMPARISON: None. FINDINGS: Decreased coordination of the swallow reflex with resulting less coordinated passage of ingested material into the hypopharynx. No significant penetration or aspiration identified. Swallowing function is within normal limits. Limited evaluation of the esophagus is within normal limits with normal distention of the gastroesophageal junction. Fluoroscopy dosage (mGy): Not available. Fluoroscopy time: 2.3 minutes. Number of fluoroscopic spot images: 0. IMPRESSION: 1. No aspiration or penetration identified. 2. Please see the speech pathologist report for detailed findings and recommendations. Electronically signed by: Elton Stokes M.D. 05/22/2017 2:26 PM Dictated Date/Time: 05/22/2017 2:24 PM
--- NOTE | 2017-05-22 15:57 | SWALLOWING EVALUATION ---
REFERRING SPEECH PATHOLOGIST: Lorene Carpio MS, CCC-IS ANALYST/L HISTORY: This 86 year-old man, currently having outpatient IS ANALYST intervention at [facility], was referred for a VFSS at [facility] in order to rule out aspiration. The patient has a PMH significant for severe idiopathic dysarthria, hypertension, DM II, depression/anxiety with long-term use of anti-psychotics. Currently the patient's diet level is regular. The patient denies dysphagia and odynophagia. PROCEDURE: The patient was seen in the Radiology Department of [facility] for the VFSS. Cursory examination of the oral cavity revealed adequate dentition. Movement of the articulators was severely impaired as evidenced by reduced lingual strength and ROM and almost entirely unintelligible speech. The patient was seated on a stool and was viewed in both the Anterior-Posterior (A-P) and Lateral planes. Volitional phonation exercises completed in the A-P plane revealed bilateral vocal fold movement and vocal intensity within functional limits. In the lateral plane, the patient was given the following boluses: 1 tsp. thin liquid barium x 2, single swallow thin liquid barium self-presented from a cup, sequential swallows of thin liquid barium self-presented from a cup, 1 tsp. nectar-thick liquid barium, single swallow nectar-thick liquid barium self-presented from a cup, 1 tsp. barium pudding, and 1/2 club cracker with barium pudding. The patient was then repositioned into the A-P plane and given 1 tsp. barium pudding. RESULTS: Oral Stage: No interlabial bolus loss. Posterior loss of more than half the bolus during attempts at holding thin liquid between tongue and palate. Prolonged mastication with parts of bolus left unchewed. Disorganized lingual motion for bolus transfer to pharynx. Collection of bolus remaining on tongue after initial swallow of solids. Required two swallows to clear oral cavity. Pharyngeal swallow initiated when the bolus head was at the posterior angle of the ramus. Mild-moderate oral-stage disorganization and delay. This would be expected given the severity of the patient's dysarthria and the impairment of his lingual function. Pharyngeal Stage: No bolus between soft palate and pharyngeal wall. Laryngeal elevation was complete. Anterior hyoid excursion partial. Epiglottic inversion and laryngeal vestibular closure complete. Present pharyngeal stripping wave. Complete pharyngeal contraction as viewed in AP plane. Adequate distention and duration of PES opening. Narrow column of contrast between tongue base and pharyngeal wall during swallow. Lining of pharyngeal structures after the swallow without any significant pharyngeal bolus retention. No penetration or aspiration during this study. The pharyngeal swallow was completely functional. Esophageal Stage: Quick episode of retrograde motion of pudding bolus below the level of the PES occurring around the aortic arch, but it cleared easily and the pudding bolus then traversed the esophagus without impedance. SUMMARY/RECOMMENDATIONS: This patient presents with mild oral-pharyngeal dysphagia, that did not impair his ability to swallow safely and functionally. The following is recommended: 1. Diet as tolerated 2. Consideration of continued f/u with OP IS ANALYST services to establish communication system. No dysphagia therapy needs identified. A summary of the results and recommendations was discussed with the patient immediately following the study. He verbalized understanding. Thank you for referral of this patient. Please contact me at if any additional information is needed.
== END | disposition home or self-care (01) ==
LOC: C.RAD 13:14
PROVIDERS: ATTEND Family Medicine
DX: T17.998A Other foreign object in respiratory tract, part unspecified causing other injury, initial encounter (principal); X58.XXXA Exposure to other specified factors, initial encounter

== ENCOUNTER 2017-06-17 16:50 | Emergency (ER) | payer BC, OTHER ==
[~2017-06-17] VITALS: Ht 172.7 cm; Wt 83.7 kg
[2017-06-17 17:05] VITALS: TEMP 36.8; Ht 172.7 cm; Wt 83.7 kg
--- NOTE | 2017-06-17 17:36 | DIAGNOSTIC IMAGING REPORT ---
HEAD WITHOUT CONTRAST (CT) CLINICAL HISTORY: 86 years-old Male presenting with fall, head injury. TECHNIQUE: Multidetector CT imaging of the head was performed without the use of intravenous contrast. IV contrast: None. A dose lowering technique was used consistent with the principles of ALARA (as low as reasonably achievable). COMPARISON: 01/19/2017. CT DOSE (mGy.cm): The estimated cumulative dose is 1094.81. FINDINGS: Hotel Security Officer topogram: Unremarkable. Proportional ventricular and sulcal prominence, likely age-related parenchymal volume loss. Brain parenchyma normal in appearance with preserved rojas-white differentiation. No mass effect or midline shift. No hemorrhage or acute territorial infarct. No extra-axial fluid collection. Paranasal sinuses and mastoid air cells clear. Calvarium intact. Bilateral catawba lenses are absent. Atherosclerosis. IMPRESSION: 1. No acute intracranial abnormality. Electronically signed by: Elton Stokes M.D. 06/17/2017 5:35 PM Dictated Date/Time: 06/17/2017 5:33 PM
--- NOTE | 2017-06-17 17:37 | DIAGNOSTIC IMAGING REPORT ---
R HUMERUS MIN 2 VIEWS ROUTINE CLINICAL HISTORY: 86 years-old Male presenting with right arm injury, fall. TECHNIQUE: Frontal and lateral views of the right humerus were obtained. COMPARISON: None. FINDINGS: Degenerative changes of the acromioclavicular joint noted. Right humerus intact with no evidence of fracture or malalignment. At the enthesophytes noted at the medial and lateral epicondyles at the origins of the common flexor and extensor tendons, respectively. IMPRESSION: No acute osseous injury. Electronically signed by: Elton Stokes M.D. 06/17/2017 5:36 PM Dictated Date/Time: 06/17/2017 5:35 PM
--- NOTE | 2017-06-17 17:41 | DIAGNOSTIC IMAGING REPORT ---
CERVICAL SPINE W/O CLINICAL HISTORY: 86 years-old Male presenting with fall, head injury. TECHNIQUE: Multidetector CT of the cervical spine was performed without the use of intravenous contrast. IV contrast: None. A dose lowering technique was used consistent with the principles of ALARA (as low as reasonably achievable). COMPARISON: None. CT DOSE (mGy.cm): The estimated cumulative dose is 1094.81 mGy.cm. FINDINGS: Airport Driver topogram: Unremarkable. Cervical lordosis preserved. Vertebral bodies maintain normal height and alignment. Mild intervertebral disc height loss at C3-4 through C5-6. Disc osteophyte complexes noted to varying degrees at every level there is no acute fracture or malalignment. Facet arthropathy noted to varying degrees at multiple levels most severe at C2-3. Degenerative changes of the atlantoaxial articulation. Skull base intact. Very degrees of osseous neural foraminal narrowing noted. Trace right apical pneumothorax. Lung apices otherwise clear. Soft tissues of the neck within normal limits allowing for noncontrast technique. Atherosclerosis. IMPRESSION: 1. Trace right apical pneumothorax. 2. Multilevel degenerative changes of the cervical spine. 3. No acute osseous injury of the cervical spine. The report will be called/faxed according to standard departmental protocol. Electronically signed by: Elton Stokes M.D. 06/17/2017 5:39 PM Dictated Date/Time: 06/17/2017 5:36 PM
--- NOTE | 2017-06-17 17:51 | DIAGNOSTIC IMAGING REPORT ---
R FOREARM 2 VIEWS ROUTINE CLINICAL HISTORY: 86 years-old Male presenting with right forearm injury, fall. TECHNIQUE: Frontal and lateral views of the right forearm were obtained. COMPARISON: None. FINDINGS: Small enthesophytes noted at the insertion of the triceps tendon at the olecranon. Enthesophytes at the origins of the common flexor and extensor tendons at the medial and lateral humeral condyles. Degenerative changes of the elbow joint. No acute fracture or malalignment. Possible loose body in the distal radioulnar articulation. Radiocarpal articulations intact. IMPRESSION: 1. No acute osseous injury. 2. Degenerative changes as detailed above. Electronically signed by: Elton Stokes M.D. 06/17/2017 5:49 PM Dictated Date/Time: 06/17/2017 5:48 PM
--- NOTE | 2017-06-17 18:23 | DIAGNOSTIC IMAGING REPORT ---
(CHEST) THORAX WITHOUT CLINICAL HISTORY: 86 years-old Male presenting with apical pneumothorax on ct cspine, fall. TECHNIQUE: Multidetector CT imaging of the chest was performed without the use of intravenous contrast. IV contrast: None. A dose lowering technique was used consistent with the principles of ALARA (as low as reasonably achievable). COMPARISON: None. CT DOSE (mGy.cm): The estimated cumulative dose is 266.10 mGy.cm. FINDINGS: Drill Press Hand topogram: Unremarkable. On soft tissue windows, bilateral gynecomastia. Normal thyroid. No axillary, supraclavicular, or mediastinal lymphadenopathy. Evaluation of the violet limited without intravenous contrast. Atherosclerosis of the aorta. Multichamber enlargement of the heart. Coronary artery and aortic valve calcification. No pericardial or pleural effusion. Upper abdomen normal. On lung windows, extensive motion artifact grades evaluation of the lung bases. Trace right pneumothorax. Dependent opacities likely atelectasis. Central airways patent. On bone windows, degenerative changes of the spine. No compression deformity. Acute fracture of the right anterior fourth and anterolateral fifth through seventh ribs. IMPRESSION: 1. Acute fractures of the right fourth through seventh ribs. 2. Trace right pneumothorax. Electronically signed by: Elton Stokes M.D. 06/17/2017 6:22 PM Dictated Date/Time: 06/17/2017 6:16 PM
--- NOTE | 2017-06-17 19:05 | EMERGENCY ROOM VISIT NOTE ---
ED Visit Note First contact with patient: 16:51 This Patient was discussed with the physician retail sales assistant, Mary Mcdowell PA-C. The pertinent historical and physical exam findings were confirmed. I agree with the studies ordered and with the interpretations of these studies. I agree with the disposition and care plan.
[2017-06-17] MEDS ORDERED: HYDR-5688 PO (19:12)
[2017-06-17] MEDS ORDERED: NORCO 5/325MG HOME PACK PO ONE (19:15)
--- NOTE | 2017-06-17 19:15 | EMERGENCY ROOM VISIT NOTE ---
History First contact with patient: 16:51 Chief Complaint: FALL Stated Complaint: FALL, R UPPER ARM PAIN, BRUISING TO CHIN History of Present Illness The patient is a 86 year old male who presents to the Emergency Room for evaluation after a ground-level fall. The patient tripped on a curb and fell, striking the right side of his arm and head. He reports pain in his right upper arm. He rates his discomfort a 7/10. His pain is sharp. He has skin tears to both forearms but denies any significant pain in the forearms. He states the fall was mechanical and not associated with any dizziness/ lightheadedness. There was no loss of consciousness. He denies any pain in his neck, chest or abdomen. Patient does not take any anticoagulants other than a baby aspirin. Review of Systems A complete 10 point review of systems was reviewed with the patient with pertinent positives and negatives as per history of present illness. All else were negative. Past Medical/Surgical History Medical Problems: (1) Anxiety (2) BPH (benign prostatic hypertrophy) (3) Diverticulosis Colon (W/O Ment Of Hemorrhage) (4) DM type 2 (diabetes mellitus, type 2) (5) Dyslipidemia (6) History of depression (7) Hypertension Nos (8) Lumbago (9) Speech articulation disorder (10) UTI (urinary tract infection) Surgical Problems: (1) H/O sinus surgery (2) History of dental surgery Family History FH: congestive heart failure BROTHER FH: lung cancer BROTHER Hypertension Lung disease Social History Smoking Status: Former Smoker Alcohol Use: none Drug Use: none Marital Status: Housing Status: lives with significant other Occupation Status: retired Current/Historical Medications Scheduled Aripiprazole (Abilify), 1 MG PO DAILY Aspirin (Aspirin Ec), 81 MG PO HS Cholecalciferol (Vitamin D), 2,000 INTER.UNIT PO QAM Colestipol HCl (Micronized Colestipol HCl), 4 GM PO QD@1200 Duloxetine Hcl (Cymbalta), 120 MG PO QAM Finasteride (Proscar), 1 TAB PO HS Fish Oil (Cypress-3), 1,200 MG PO BID Ipratropium Morton (Nasal) (Ipratropium Morton), 1-2 SPRAYS PURA DAILY Lisinopril (Zestril), 20 MG PO QPM Multivitamin (Multivitamin), 1 TAB PO QAM Pioglitazone (Actos), 30 MG PO DAILY Potassium Ext Rel (Klor-Con), 20 MEQ PO QAM Solifenacin Succinate (Vesicare), 1 TAB PO DAILY Scheduled PRN Hydrocodone/Acetaminophen 5MG/325MG (Fernwood 5MG/325MG), 1 TABLET PO Q4H PRN for Pain Zolpidem Tartrate (Zolpidem Tartrate), 5 MG PO HS PRN for Sleep Physical Exam Vital Signs Date Time Temp Pulse Resp B/P (MAP) Pulse Ox O2 Delivery O2 Flow Rate FiO2 06/17/17 19:49 72 24 151/74 97 06/17/17 18:20 83 18 182/88 98 Room Air 06/17/17 17:05 36.8 67 18 206/102 98 Room Air Physical Exam VITALS: Vitals are noted on the nurse's note and reviewed by myself. Vital signs stable. GENERAL: This is an 86-year-old male, in no acute distress, well-developed well- nourished. SKIN: There are superficial skin tears to bilateral forearms without active bleeding. No deep lacerations. HEAD: Normocephalic atraumatic. EARS: External auditory canals clear, tympanic membranes pearly rojas without erythema or effusion bilaterally. No hemotympanum. EYES: Pupils equal round and reactive to light and accommodation. Extraocular movements intact. NECK: Supple without nuchal rigidity. No tenderness of the cervical spine. HEART: Regular rate and rhythm without murmurs gallops or rubs. LUNGS: Clear to auscultation bilaterally without wheezes, rales or rhonchi. No retractions or accessory muscle use. ABDOMEN: Positive bowel sounds x 4. Soft, nontender to palpation. MUSCULOSKELETAL: Mild tenderness to palpation of the right upper arm. Drug Abuse Technician strength 5/5 bilaterally. No tenderness to palpation of the chest wall. NEURO: Patient was alert and oriented to person place and time. Patient has dysarthria and at times answers by writing down words on a piece of paper. He is pleasant and cooperative and answers questions appropriately. Medical Decision & Procedures ER Provider Diagnostic Interpretation: HEAD WITHOUT CONTRAST (CT) FINDINGS: Metal Model Builder topogram: Unremarkable. Proportional ventricular and sulcal prominence, likely age-related parenchymal volume loss. Brain parenchyma normal in appearance with preserved rojas-white differentiation. No mass effect or midline shift. No hemorrhage or acute territorial infarct. No extra-axial fluid collection. Paranasal sinuses and mastoid air cells clear. Calvarium intact. Bilateral t[place] lenses are absent. Atherosclerosis. IMPRESSION: 1. No acute intracranial abnormality. CERVICAL SPINE W/O FINDINGS: Metal Model Builder topogram: Unremarkable. Cervical lordosis preserved. Vertebral bodies maintain normal height and alignment. Mild intervertebral disc height loss at C3-4 through C5-6. Disc osteophyte complexes noted to varying degrees at every level there is no acute fracture or malalignment. Facet arthropathy noted to varying degrees at multiple levels most severe at C2-3. Degenerative changes of the atlantoaxial articulation. Skull base intact. Very degrees of osseous neural foraminal narrowing noted. Trace right apical pneumothorax. Lung apices otherwise clear. Soft tissues of the neck within normal limits allowing for noncontrast technique. Atherosclerosis. IMPRESSION: 1. Trace right apical pneumothorax. 2. Multilevel degenerative changes of the cervical spine. 3. No acute osseous injury of the cervical spine. (CHEST) THORAX WITHOUT FINDINGS: Metal Model Builder topogram: Unremarkable. On soft tissue windows, bilateral gynecomastia. Normal thyroid. No axillary, supraclavicular, or mediastinal lymphadenopathy. Evaluation of the violet limited without intravenous contrast. Atherosclerosis of the aorta. Multichamber enlargement of the heart. Coronary artery and aortic valve calcification. No pericardial or pleural effusion. Upper abdomen normal. On lung windows, extensive motion artifact grades evaluation of the lung bases. Trace right pneumothorax. Dependent opacities likely atelectasis. Central airways patent. On bone windows, degenerative changes of the spine. No compression deformity. Acute fracture of the right anterior fourth and anterolateral fifth through seventh ribs. IMPRESSION: 1. Acute fractures of the right fourth through seventh ribs. 2. Trace right pneumothorax. R HUMERUS MIN 2 VIEWS ROUTINE FINDINGS: Degenerative changes of the acromioclavicular joint noted. Right humerus intact with no evidence of fracture or malalignment. At the enthesophytes noted at the medial and lateral epicondyles at the origins of the common flexor and extensor tendons, respectively. IMPRESSION: No acute osseous injury. R FOREARM 2 VIEWS ROUTINE FINDINGS: Small enthesophytes noted at the insertion of the triceps tendon at the olecranon. Enthesophytes at the origins of the common flexor and extensor tendons at the medial and lateral humeral condyles. Degenerative changes of the elbow joint. No acute fracture or malalignment. Possible loose body in the distal radioulnar articulation. Radiocarpal articulations intact. IMPRESSION: 1. No acute osseous injury. 2. Degenerative changes as detailed above. Medications Administered Medications (Trade) Dose Ordered Sig/Brittaney Route Start Time Stop Time Status Last Admin Dose Admin Acetaminophen/ Hydrocodone Bitart (Fernwood 5/325mg Home Pack) 1 [facility] UD ONCE PO 06/17/17 19:15 06/17/17 19:16 DC 06/17/17 19:[address] [facility] Course The patient was evaluated as above. He declined anything for pain. CT of the head and cervical spine as well as x-rays of the right humerus and forearm. CT of the cervical spine showed a trace pneumothorax. CT of the chest without contrast was then ordered. Patient was reevaluated. He is saturating 100% on room air. He ambulated to the bathroom without difficulty. Case was discussed with Dr. Boyle of cardiothoracic surgery. He agrees to evaluate the patient as an outpatient tomorrow morning. Patient was reevaluated and the plan was discussed. He again declined anything for pain and would like to be discharged. Discharge instructions were reviewed with the patient. The patient verbalized understanding of my assessment and treatment plan and was discharged home in good condition. Medical Decision Differential diagnosis includes fracture, contusion, sprain, intracranial bleed , cervical spine fracture, intrathoracic injury, intra-abdominal injury, among others. The patient is an 86-year-old male who presents today complaining of a ground- level fall. Patient complains of pain in the head and right upper arm. CT of the head and cervical spine were negative as well as x-rays of the right humerus and forearm. There was found to be a trace apical pneumothorax on the cervical spine CT. A CT of the chest was then performed and showed 4 right- sided rib fractures as well as tiny pneumothorax. Patient does not complain of chest pain and O2 sats are 100% on room air. He was able to ambulate without any difficulty. The patient lives at [facility] and case management did speak with them. They are able to upgrade his level of care for a short period of time. He was given an incentive spirometer and pain medication to be taken as needed. He is to return with any worsening or new/concerning symptoms. I spoke with cardiothoracic surgery he will follow-up with him as an outpatient in the morning. The patient was independently evaluated by Dr. Pereira, ED attending physician, who agreed with my assessment and treatment plan. Based on the patient's presentation and work up, I feel the patient is stable for outpatient treatment. The patient was educated to return to the emergency department for any worsening of their current condition or new/concerning symptoms. He will follow up with cardiothoracic surgery tomorrow. [employer] Drug Monitoring Program Search Results: patient reviewed within database, no issues identified Head Trauma GCS Score: 15 Medication Reconcilliation Current Medication List: was personally reviewed by me Blood Pressure Screening Patient's blood pressure: Elevated blood pressure Blood pressure disposition: Elevated BP felt to be situational, Referred to PCP Impression Primary Impression: Multiple rib fractures Additional Impression: Pneumothorax, right Departure Information Dispostion Home / Self-Care Condition GOOD Prescriptions Hydrocodone/Acetaminophen 5MG/325MG (Fernwood 5MG/325MG) Tab 1 TABLET PO Q4H Y for Pain, #15 TAB For Initial Treatment Prov: Mary Mcdowell .BALA 06/17/17 Referrals Casey Zhang, D.OJordana (PCP) Mich Boyle MD Patient Instructions My [facility] Additional Instructions You have been treated in the Emergency Department for Rib Fractures. You have been prescribed Fernwood to be used for pain control. This is a narcotic medication. You cannot drive or consume alcohol while on this medicine. This medicine should only be used for pain that cannot be controlled with over-the- counter pain medicines. For pain control, you can use the following [id number]-lugivrx medicines (if >12 yo): - Regular strength (325mg/tab) Tylenol (acetaminophen) 2 tabs every 4-6 hours as needed. Do not exceed 12 tablets in a 24 hour period. Avoid taking more than 4 grams (4000 mg) of Tylenol per day. This includes any other sources of acetaminophen you may take on a regular basis. - Regular strength (200 mg/tab) Advil (ibuprofen) 1-2 tabs every 4-6 hours as needed. Do not exceed a dose of 3200 mg per day. If this is an acute injury, ice can be applied to the area of pain for the first 3 days to help decrease pain and inflammation. After the first 3 days, a heating pad can be used over the area for continued soothing relief. Use the incentive spirometer as directed. Dr. Boyle would like to see you in the morning for a follow-up visit. Call his office in the morning. Return to the Emergency Department if your current symptoms worsen despite treatment course outlined above, or if you develop any of the following symptoms : intractable pain despite aforementioned treatment course, development of a wet cough, bloody cough, fever, chills, or increased shortness of breath. Problem Qualifiers Primary Impression: Multiple rib fractures Encounter type: initial encounter Fracture type: closed Laterality: right Qualified Codes: S22.41XA - Multiple fractures of ribs, right side, initial encounter for closed fracture
[2017-06-17 19:49] VITALS: BP 151/74; PULSE 72; O2SAT 97
== END 2017-06-17 20:45 | disposition home or self-care (01) ==
LOC: EDBD 16:50 → C.EDC 16:51
DX: S22.41XA Multiple fractures of ribs, right side, initial encounter for closed fracture (principal); S27.0XXA Traumatic pneumothorax, initial encounter; M79.621 Pain in right upper arm; W01.0XXA Fall on same level from slipping, tripping and stumbling without subsequent striking against object, initial encounter; F41.9 Anxiety disorder, unspecified; N40.0 Benign prostatic hyperplasia without lower urinary tract symptoms; K57.30 Diverticulosis of large intestine without perforation or abscess without bleeding; E11.9 Type 2 diabetes mellitus without complications; E78.5 Hyperlipidemia, unspecified; F32.9 Major depressive disorder, single episode, unspecified; I10 Essential (primary) hypertension; Z79.82 Long term (current) use of aspirin; Z87.891 Personal history of nicotine dependence; Z82.49 Family history of ischemic heart disease and other diseases of the circulatory system; Z80.1 Family history of malignant neoplasm of trachea, bronchus and lung